=== PATIENT | female | born 1940 | race Caucasian/White ===

== ENCOUNTER 2017-12-27 12:18 | Inpatient (IN) | payer MEDICARE ==
--- NOTE | 2017-12-27 13:16 | RAD ---
LEFT FOOT 3 VIEWS: Date: 12/27/17 PROVIDED CLINICAL HISTORY: Left foot infection. FINDINGS: Soft tissue gas is seen medial to the great toe MTP joint. Additional change from prior examination i s not apparent. IMPRESSION: As above. POS: [facility]
[2017-12-27 13:52] LABS: Hemoglobin 6.4 g/dL (12.0-16.0); Mean Corpuscular HGB CONC 28.3 g/dL (32.0-36.0); Mean Corpuscular Hemoglobin 18.3 pg (27.0-31.0); Mean Corpuscular Volume 64.8 fL (78.0-98.0); Platelet Count 483 thou/uL (130-400); RBC Distribution Width 18.5 % (11.5-14.5)
[2017-12-27 14:08] LABS: ALT (SGPT) 10 U/L (8-55); AST (SGOT) 19 U/L (5-34); Albumin 4.3 g/dL (3.4-4.8); Alkaline Phosphatase 124 U/L (40-150); Anion Gap 14 mmol/L (10-20); BUN (Urea Nitrogen) 9 mg/dL (9.8-20.1); Bilirubin, Total 0.2 mg/dL (0.2-1.2); Calc. Creatinine Clearance 0 mL/min (70-130); Calcium 10.4 mg/dL (7.8-10.44); Carbon Dioxide 23 mmol/L (23-31); Chloride 103 mmol/L (98-107); Estimated GFR-MDRD 52; Globulin 3.6 g/dL (2.4-3.5); Glucose 97 mg/dL (83-110); Potassium 3.7 mmol/L (3.5-5.1); Protein, Total 7.9 g/dL (6.0-8.3); Sodium 136 mmol/L (136-145)
[2017-12-27 14:14] LABS: #Eosinphils 0.1 thou/uL (0.0-0.7); #Lymphocytes 1.8 thou/uL (1.20-3.40); #Monocytes 0.7 thou/uL (0.11-0.59); #Neutrophils 8.4 thou/uL (1.40-6.50); %Basophils 0.3 % (0.0-1.0); %Eosinophils 0.8 % (0.0-10.0); %Lymphocytes 15.9 % (21.0-51.0); %Monocytes 6.8 % (0.0-10.0); %Neutrophils 76.2 % (42.0-75.0); Anisocytosis SLIGHT = 6-15 cells (100X) (0-5/hpf); Elliptocytes SLIGHT = 2-5 cells (100X) (0-1/hpf); Hypochromia SLIGHT = 6-15 cells (100X) (0-5/hpf); MDiff Complete? YES; Microcytosis SLIGHT = 6-15 cells (100X) (0-5/hpf); PLT Morphology Comment Appears Increased; Poikilocytosis SLIGHT = 6-15 cells (100X) (0-5/hpf); Polychromasia SLIGHT = 2-3 cells (100X) (0-2/hpf)
[2017-12-27 15:14] LABS: Reticulocyte Count 1.6 % (0.5-1.5)
--- NOTE | 2017-12-27 16:17 | RAD ---
CHEST ONE VIEW: 12/27/17 HISTORY: Dyspnea. FINDINGS: No comparison. The cardiac silhouette is magnified by projection. Pulmonary vasculature upper limits of normal. Mediastinum is midline with postoperative changes, aortic calcification, and a hiatal madhuri ia. Marked elevation of the right hemidiaphragm. No evidence of pneumothorax. IMPRESSION: Marked right hemidiaphragm elevation. Age indeterminate. Atherosclerosis. POS: [facility]
[2017-12-27] MEDS ORDERED: Iron Sucrose Complex 200 MG in Sodium Chloride 0.9% 250 ML 250 ML IVPB SCH (16:30)
[2017-12-27] MEDS ORDERED: Iron, Sodium Ferric Gluconate 250 MG in Sodium Chloride 0.9% 100 ML IVPB SCH ×2 (16:45→18:00)
[2017-12-27] MEDS ORDERED: Heparin 1,000 UNITS/ML VIAL ONE (17:07)
[2017-12-27 17:13] VITALS: BMI 23.6
[2017-12-27] MEDS: Ferrous Sulfate 325 MG TAB PO SCH (17:24)
[2017-12-27] MEDS: Nicotine 14 MG PATCH TD SCH (19:49)
[2017-12-27] MEDS: Acetaminophen 325 MG TAB PO PRN (19:55)
--- NOTE | 2017-12-27 20:19 | HP ---
CHIEF COMPLAINT: Worsening left foot pain. HISTORY OF PRESENT ILLNESS: Patient is a very pleasant 77-year-old female with a history of neuropat hy and a history of Charcot's foot who presented to the hospital with complaints of worsening left fo ot pain. Patient initially was seen earlier this week by her primary and for her wellness check ever ything was okay; however, patient stated that she bought new tennis shoes, started having some pain t o medial aspect of her left foot. The patient then went to see her PCP who referred her to Infectiou s Disease who put her on 2 oral antibiotics. Wound culture indicated Pseudomonas. The patient state d that she took 1 week of the antibiotics and was sikhism about it. However, she noticed that her pain worsened, so she called, her pain worsened. The patient stated that actually she saw the Infect ious Disease doctor yesterday and was asked to come into the hospital after some blood work concernin g for anemia and possible worsening infection to her bone. However, the patient came in today for fu rther evaluation. Patient denies any fevers or chills. She just states that she does have worsening pain on her left foot area. REVIEW OF SYSTEMS: All negative except for the ones mentioned above in the HPI. PAST MEDICAL HISTORY: She has a history of anemia and neuropathy. PAST SURGICAL HISTORY: She has a history of tonsillectomy, right BKA, hysterectomy. She also has a history of CABG; however, she states that she does not have coronary artery disease. Patient stated that she had a fall and had fractured her right ankle; however, continue to work on it which caused h er to have multiple surgeries and eventually led to amputation of the right below the knee. SOCIAL HISTORY: She drinks once a year. She does smoke 3/4 of pack a day. Denies any other recreat ional drug use. She is a FULL CODE per the patient. ALLERGIES: She has no known drug allergies. MEDICATIONS: She only takes gabapentin 1200 mg 3 times a day. She takes aspirin 81 mg daily. She t akes the two antibiotics that were prescribed to her, but she cannot recall. PHYSICAL EXAMINATION: VITAL SIGNS: As of the following; temperature of 98.6, 16, pulse of 104, 149/74. GENERAL: She is awake, alert, oriented x3, does not appear in distress. CARDIOVASCULAR: S1, S2 present. Mild tachycardia. No murmurs or rubs noted. LUNGS: Clear to auscultation. No rhonchi or wheezes noted. ABDOMEN: Soft, nontender. Bowel sounds are present x2. MUSCULOSKELETAL: Lower extremities, she does have a below the knee amputation of her right which she does have a sleeve on. Her left foot, she does have a small opening which is currently covered. Sh enmanuel does have pedal edema to her left foot area and are deformed joint. LABORATORY DATA AND IMAGING DATA: As of the following: WBC of 11.0, hemoglobin of 6.4, hematocrit o f 22.7, MCV of 64.8. Her reticular count was 1.6. Chemistry: Sodium 136, potassium 3.7, BUN of 9, creatinine 1.03. Her LFTs are normal. She did have a left foot x-ray which indicated some concernin g for some soft tissue gas seen in the medial and to the greater toe MTP joint. ASSESSMENT AND PLAN: The patient is a very pleasant 77-year-old female who presents to the hospital with left foot pain. 1. Left foot cellulitis, most likely osteomyelitis with the comorbidities being neuropathy and also possible coronary artery disease or CAD, I am not sure. We will start patient on vancomycin. We ruperto l also give the patient of Levaquin since her culture recently indicated Pseudomonas, which was panse nsitive. We will consult Infectious Disease, also may be surgical consult also will be required. Fercho bundy will also get a lower extremity arterial Doppler to check for vascular flow. 2. Iron deficiency anemia. Patient's iron is 14. We will start patient on IV iron and oral iron si multaneously. She is receiving 1 unit of PRBC now. 3. Shortness of breath. The patient states she normally uses a wheelchair, but however, she states that whenever sometimes she moves around too quickly, she gets very short of breath. I am not sure i f this is anxiety related; however, she has had a bypass, but she stated that she was told that her c oronaries were clear. I am not kind of sure, there are possibilities however, very extremely rare. We will check an EKG and chest x-ray and go from there. 3. Neuropathy. The patient had an extensive workup as an outpatient for neuropathy back many years ago in [place]. She also had an EMG study also however, no etiology for her neuropathy. She is curre ntly on gabapentin. 4. Deep venous thrombosis prophylaxis. We will put the patient on sequential compression devices an d we will get physical therapy and occupational therapy to see this patient and also will put her on the nicotine patch.
[2017-12-27] MEDS ORDERED: Vancomycin HCl 1 GM in Premix Bag 1 BAG IVPB SCH (21:00)
[2017-12-28] MEDS: Acetaminophen 325 MG TAB PO PRN ×3 (01:52→23:13)
[2017-12-28 06:07] LABS: #Eosinphils 0.2 thou/uL (0.0-0.7); #Monocytes 0.8 thou/uL (0.11-0.59); #Neutrophils 4.6 thou/uL (1.40-6.50); %Basophils 0.4 % (0.0-1.0); %Eosinophils 2.5 % (0.0-10.0); %Lymphocytes 26.5 % (21.0-51.0); %Monocytes 10.4 % (0.0-10.0); %Neutrophils 60.2 % (42.0-75.0); Hemoglobin 6.7 g/dL (12.0-16.0); Mean Corpuscular HGB CONC 29.2 g/dL (32.0-36.0); Mean Corpuscular Hemoglobin 20.1 pg (27.0-31.0); Mean Corpuscular Volume 68.9 fL (78.0-98.0); Mean Platelet Volume 10.2 fL (7.4-10.4); Platelet Count 394 thou/uL (130-400); RBC Distribution Width 20.3 % (11.5-14.5); Red Blood Cell (RBC) Count 3.33 mill/uL (4.20-5.40); White Blood Cell (WBC) Count 7.6 thou/uL (4.8-10.8)
[2017-12-28 06:13] LABS: Anion Gap 12 mmol/L (10-20); BUN (Urea Nitrogen) 10 mg/dL (9.8-20.1); Calc. Creatinine Clearance 55 mL/min (70-130); Calcium 8.8 mg/dL (7.8-10.44); Carbon Dioxide 21 mmol/L (23-31); Chloride 107 mmol/L (98-107); Cholesterol 117 mg/dl (< 200 Desired); Estimated GFR-MDRD 57; Glucose 103 mg/dL (83-110); HDL Cholesterol 29 mg/dL (>60 Neg Risk); LDL Cholesterol, Calculated 70 mg/dL; Potassium 3.8 mmol/L (3.5-5.1); Sodium 136 mmol/L (136-145); Triglycerides 89 mg/dL (Less than 150)
[2017-12-28] MEDS: Cyanocobalamin (Vitamin B-12) 1,000 MCG TAB PO SCH (08:44)
[2017-12-28] MEDS: Aspirin 81 mg Enteric Coated Tablet PO SCH (08:44)
[2017-12-28] MEDS: Ferrous Sulfate 325 MG TAB PO SCH ×2 (08:44→17:58)
[2017-12-28] MEDS ORDERED: Ergocalciferol 1.25 MG(50,000 UNITS) CAP PO SCH (09:00)
--- NOTE | 2017-12-28 13:45 | ULT ---
BILATERAL LOWER EXTREMITY ARTERIAL DOPPLER STUDY: Date: 12/28/17 Arteries to both lower extremities evaluated with color Doppler, spectral analysis in compression and velocity recordings at all segments. INDICATION: Left lower extremity pain and nonhealing ulcer. Peripheral arterial disease. Patient is status post B K amputation on the right. FINDINGS: RIGHT LOWER EXTREMITY: Right common femoral artery reveals a biphasic waveform. Velocities are increased at 183 cm/second. Profunda shows a biphasic waveform with velocities at 100 cm/second. Superficial femoral artery shows biphasic waveform with velocities ranging from 57-153 cm/second. The right popliteal shows a biphasic waveform with velocities of 84 cm/second. LEFT LOWER EXTREMITY: Left common femoral artery, superficial femoral artery, and popliteal show a biphasic waveform with r elatively symmetric velocities. The left anterior tibial artery, posterior tibial artery, and dorsalis pedis show a monophasic wavefo rm with reduced velocities. IMPRESSION: 1. Evidence of moderate to severe peripheral vascular disease below the knee on the left. 2. Evidence of moderate disease above the knee bilaterally. POS: [facility]
[2017-12-28] MEDS: Vancomycin HCl 1.25 GM in Sodium Chloride 0.9% 250 ML 250 ML IVPB SCH (14:19)
--- NOTE | 2017-12-28 14:36 | PDOC.PN ---
- Subjective Encounter Start Date: 12/28/17 Encounter Start Time: 10:00 Pt seen for followup re: left foot cellulitis. Denies chest pain, shortness of breath, fevers or chills. - Objective Resuscitation Status: Resuscitation Status FULL:Full Resuscitation MAR Reviewed: Yes Vital Signs & Weight: Vital Signs (12 hours) Temp Pulse Resp BP Pulse Ox 12/28/17 11:32 97.6 F 101 H 18 146/72 H 97 12/28/17 08:00 95 12/28/17 07:42 98.3 F 87 18 121/72 95 12/28/17 04:29 98.2 F 91 16 124/68 94 L Weight Weight 151 lb 2 oz I&O: 12/27/17 12/28/17 12/29/17 06:59 06:59 06:59 Intake Total 240 Balance 240 Result Diagrams: 12/28/17 03:31 12/28/17 03:31 Additional Labs: labs reviewed by me Phys Exam - Physical Examination Constitutional: NAD HEENT: moist MMs, sclera anicteric, oral pharynx no lesions, 2+ tonsils Neck: no nodes, no JVD, supple, full ROM Respiratory: no wheezing, no rales, no rhonchi, clear to auscultation bilateral Cardiovascular: RRR, no rub Gastrointestinal: soft s/p R BKA Neurological: moves all 4 limbs Psychiatric: normal affect Deviation from normal: Oriented to person and place, not to time Deviation from normal: L foot erythema, ulcer Dx/Plan (1) Cellulitis Code(s): L03.90 - CELLULITIS, UNSPECIFIED Status: Acute Comment: continue IV vancomycin and levofloxacin (2) Vitamin D deficiency Code(s): E55.9 - VITAMIN D DEFICIENCY, UNSPECIFIED Status: Acute Comment: continue vit d (3) Microcytic anemia Code(s): D50.9 - IRON DEFICIENCY ANEMIA, UNSPECIFIED Status: Chronic Comment : continue iron replacement, pt also receiving pRBC (4) Peripheral neuropathy Code(s): G62.9 - POLYNEUROPATHY, UNSPECIFIED Status: Chronic Comment: continue gabapentin - Plan * . Review of Systems - Review of Systems Constitutional: negative: fever, chills, sweats, weakness, malaise Respiratory: negative: Cough, Shortness of Breath, SOB with Excertion, Pleuritic Pain, Wheezing Cardiovascular: negative: chest pain, palpitations, orthopnea, paroxysmal nocturnal dyspnea, edema, light headedness Gastrointestinal: negative: Nausea, Vomiting, Abdominal Pain, Diarrhea, Constipation, Melena, Hematochezia Genitourinary: negative: Dysuria, Frequency, Incontinence, Hematuria, Retention Skin: Rash, Lesions. negative: Larry, Bruising - Medications/Allergies Allergies/Adverse Reactions: Allergies Allergy/AdvReac Type Severity Reaction Status Date / Time No Known Allergies Allergy Unverified 12/27/17 15:21 Medications: Current Medications Acetaminophen (Tylenol) 650 mg PO Q4H PRN PRN Reason: Headache/Fever/Mild Pain (1-3) Last Admin: 12/28/17 14:19 Dose: 650 mg Aspirin (Ecotrin) 81 mg PO DAILY [facility] Last Admin: 12/28/17 08:44 Dose: 81 mg Cholecalciferol (Vitamin D3) 1,000 units PO DAILY [facility] Last Admin: 12/28/17 08:44 Dose: 1,000 units Cyanocobalamin (Vitamin B-12) 1,000 mcg PO DAILY [facility] Last Admin: 12/28/17 08:44 Dose: 1,000 mcg Ergocalciferol (Drisdol) 1.25 mg PO Q7DAYS [facility] Last Admin: 12/28/17 14:19 Dose: 1.25 mg Ferrous Sulfate (Feosol) 325 mg PO BID-[facility] Last Admin: 12/28/17 08:44 Dose: 325 mg Levofloxacin 500 mg/ Device 100 mls @ 100 mls/hr IVPB Q24HR [facility] Last Admin: 12/27/17 17:24 Dose: 100 mls Vancomycin HCl 1.25 gm/ Sodium (Chloride) 250 mls @ 166.667 mls/hr IVPB 1400 [facility] Last Admin: 12/28/17 14:19 Dose: 250 mls Miscellaneous Medication (Pharmacy To Dose) 1 each IVPB ONE PRN PRN Reason: Pharmacy to dose Stop: 01/06/18 15:22 Nicotine (Nicoderm Patch) 14 mg TD Q24HR [facility] Last Admin: 12/27/17 19:49 Dose: 14 mg
[2017-12-28] MEDS ORDERED: Polyethylene Glycol 3350 17 GM Packet PO PRN (20:12)
[2017-12-28] MEDS ORDERED: Senokot 8.6 MG TAB PO SCH (20:15)
[2017-12-28] MEDS: Nicotine 14 MG PATCH TD SCH (20:48)
[2017-12-29] MEDS: Aspirin 81 mg Enteric Coated Tablet PO SCH (08:42)
[2017-12-29] MEDS: Ferrous Sulfate 325 MG TAB PO SCH ×2 (08:42→17:28)
[2017-12-29] MEDS: Cyanocobalamin (Vitamin B-12) 1,000 MCG TAB PO SCH (08:42)
[2017-12-29 10:24] LABS: ANA Symphony (Qualitative) Negative (Negative); dsDNA IgG Antibody 0.6 IU/mL (<10 Negative)
--- NOTE | 2017-12-29 12:53 | CON ---
DATE OF CONSULTATION: 12/29/2017 REASON FOR CONSULTATION: Left foot inflammatory process. HISTORY OF PRESENT ILLNESS: A 77-year-old with a history of coronary artery disease with bypass surjit t surgery, peripheral vascular disease and prior right BKA and a chronic wound, left first MPJ skin w ith x-ray and MRI findings suggestive of osteomyelitis. The patient had been seen in the outpatient setting and was scheduled for continuation of conservative management, plus arterial vascular evaluat ion. Labs were submitted and there was evidence of severe anemia and therefore she was admitted. Cu rrently, she does not appear in distress. She has moderate pain in the left foot. She denies any headaches, no change in visual symptoms, sore throat, odynophagia, dysphagia, no vomit ing, no hematemesis, melena, hematochezia, no diarrhea, no genitourinary symptoms. PAST MEDICAL HISTORY: Includes coronary artery disease, bypass graft surgery, peripheral vascular di sease, prior right BKA, chronic wound, left first MPJ skin site with radiological findings suggestive of osteomyelitis. ALLERGIES: No known drug allergies. MEDICATIONS: The patient had planned treatment with vancomycin, Flagyl, Cipro, but she not had a PIC C line inserted yet. SOCIAL HISTORY: The patient is still smoking daily. FAMILY HISTORY: Noncontributory. PHYSICAL EXAMINATION: VITAL SIGNS: T-max 98.6, blood pressure 130/77, pulse 99, respirations 18, O2 saturation 98%. GENERAL: Appears chronically ill, but in no distress, pleasant. SKIN: Skin findings with a round shaped 2 cm ulcer at the medial aspect of the left first MPJ skin w ith very mild erythema surrounding it. She has a normal appearing right BKA stump. Peripheral IV ac cess and she is voiding spontaneously without a catheter. No lymphadenopathy. HEENT: Ocular movements conjugate. Oral cavity was not remarkable except for numerous missing teeth . NECK: Supple, no jugular distention or carotid bruits. LUNGS: With symmetric air entry. HEART: S1, S2, regular rate without murmurs. ABDOMEN: Soft, not distended or tender. No ascites. No bladder distention. No joint inflammatory activity outside the area of involvement. I could not feel popliteal or dorsalis pedis on the left s kamlesh. LABORATORY DATA: White cell count is 11,000, now 7.6, hemoglobin 6.4 and now 6.7, platelets 483 and 394 and creatinine 0.96, iron was 14, TIBC 395, ferritin 7.68. Lower extremity ultrasound demonstrates a moderate to severe peripheral vascular disease below the kn ee on the left, moderate disease above the knee bilaterally. Chest x-ray with elevation of the right hemidiaphragm. ASSESSMENT: 1. Chronic smoking. 2. Peripheral vascular disease with previous right [id number] amputation. 3. Chronic ulcer, left first MPJ skin site with osteomyelitis. 4. Severe anemia, possible iron deficiency. DISCUSSION: It is unlikely that the first toe is salvageable. I would at this time recommend contin uation of antimicrobial therapy with oral Cipro, Flagyl, and IV vancomycin, PICC line placement and c onsult Vascular Surgery to see if she is eligible for any revascularization procedure to decrease the risks of a BKA on the left side. If the patient is eligible for revascularization then that should be accomplished and then we could continue antimicrobial therapy, but eventually she probably will re quire first ray amputation on the left side.
[2017-12-29] MEDS: Acetaminophen 325 MG TAB PO PRN ×2 (13:36→22:46)
[2017-12-29 13:58] LABS: Vancomycin, Trough 10.6 ug/mL
[2017-12-29] MEDS: Vancomycin HCl 750 MG in Sodium Chloride 0.9% 250 ML 250 ML IVPB SCH (14:54)
--- NOTE | 2017-12-29 16:11 | ULT ---
BILATERAL CAROTID DUPLEX ULTRASOUND INCLUDING COLOR AND SPECTRAL DOPPLER IMAGIN12/29/17 HISTORY: 77-year-old female with history of right bruit. There is some fairly extensive visual plaque in the origins of both ICAs. PSV right ICA 162 cm/s. EDV 16 cm/s. ICA/CCA ratio of 1.2. PSV left ICA 147 cm/s. EDV 29 cm/s. ICA/CCA ratio of 1.6. Vertebral flow is antegrade. IMPRESSION: Moderate (50-69%) stenosis of right and left proximal ICAs. Bilateral visual plaque. POS: [facility]
[2017-12-29] MEDS ORDERED: Zolpidem Tartrate 5 MG TAB PO PRN (16:49)
--- NOTE | 2017-12-29 16:49 | PDOC.PN ---
- Subjective Encounter Start Date: 12/29/17 Encounter Start Time: 09:20 Pt seen for followup re: cellulitis. Denies chest pain, shortness of breath, fevers or chills. c/o insomnia - Objective Resuscitation Status: Resuscitation Status FULL:Full Resuscitation MAR Reviewed: Yes Vital Signs & Weight: Vital Signs (12 hours) Temp Pulse Resp BP Pulse Ox 12/29/17 16:00 98.8 F 98 16 126/78 96 12/29/17 09:00 97.7 F 100 16 150/79 H 99 12/29/17 08:00 98.1 F 99 18 134/77 98 Weight Weight 151 lb 2 oz I&O: 12/28/17 12/29/17 12/30/17 06:59 06:59 06:59 Intake Total 660 500 Balance 660 500 Result Diagrams: 12/28/17 03:31 12/28/17 03:31 Additional Labs: labs reviewed by me Phys Exam - Physical Examination Constitutional: NAD HEENT: moist MMs, sclera anicteric, oral pharynx no lesions, 2+ tonsils Neck: no nodes, no JVD, supple, full ROM Respiratory: no wheezing, no rales, no rhonchi, clear to auscultation bilateral Cardiovascular: RRR, no rub S1, s2 Gastrointestinal: soft, non-tender, no distention, positive bowel sounds s/p R BKA Psychiatric: normal affect, A&O x 3 Deviation from normal: L foot wound, cellulitis Dx/Plan (1) Cellulitis Code(s): L03.90 - CELLULITIS, UNSPECIFIED Status: Acute Comment: continue IV vancomycin, start oral ciprofloxacin and metronidazole (2) Vitamin D deficiency Code(s): E55.9 - VITAMIN D DEFICIENCY, UNSPECIFIED Status: Acute Comment: on vit d (3) Microcytic anemia Code(s): D50.9 - IRON DEFICIENCY ANEMIA, UNSPECIFIED Status: Chronic Comment : continue iron replacement (4) Peripheral neuropathy Code(s): G62.9 - POLYNEUROPATHY, UNSPECIFIED Status: Chronic Comment: on gabapentin (5) Insomnia Code(s): G47.00 - INSOMNIA, UNSPECIFIED Status: Chronic Comment: PRN Ambien and melatonin - Plan * . Review of Systems - Review of Systems Constitutional: other (insomnia). negative: fever, chills, sweats, weakness, malaise Respiratory: negative: Cough, Shortness of Breath, SOB with Excertion, Pleuritic Pain, Wheezing Cardiovascular: negative: chest pain, palpitations, orthopnea, paroxysmal nocturnal dyspnea, edema, light headedness Gastrointestinal: negative: Nausea, Vomiting, Abdominal Pain, Diarrhea, Constipation, Melena, Hematochezia Genitourinary: negative: Dysuria, Frequency, Incontinence, Hematuria, Retention Skin: Rash, Lesions - Medications/Allergies Allergies/Adverse Reactions: Allergies Allergy/AdvReac Type Severity Reaction Status Date / Time No Known Allergies Allergy Unverified 12/27/17 15:21 Medications: Current Medications Acetaminophen (Tylenol) 650 mg PO Q4H PRN PRN Reason: Headache/Fever/Mild Pain (1-3) Last Admin: 12/29/17 13:36 Dose: 650 mg Aspirin (Ecotrin) 81 mg PO DAILY [facility] Last Admin: 12/29/17 08:42 Dose: 81 mg Cholecalciferol (Vitamin D3) 1,000 units PO DAILY [facility] Last Admin: 12/29/17 08:42 Dose: 1,000 units Cyanocobalamin (Vitamin B-12) 1,000 mcg PO DAILY [facility] Last Admin: 12/29/17 08:42 Dose: 1,000 mcg Ergocalciferol (Drisdol) 1.25 mg PO Q7DAYS [facility] Last Admin: 12/28/17 14:19 Dose: 1.25 mg Ferrous Sulfate (Feosol) 325 mg PO BID-[facility] Last Admin: 12/29/17 08:42 Dose: 325 mg Levofloxacin 500 mg/ Device 100 mls @ 100 mls/hr IVPB Q24HR [facility] Last Admin: 12/28/17 17:55 Dose: 100 mls Vancomycin HCl 750 mg/ Sodium (Chloride) 250 mls @ 250 mls/hr IVPB 0300,1500 [facility] Last Admin: 12/29/17 14:54 Dose: 250 mls Melatonin (Melatonin) 3 mg PO HS PRN PRN Reason: Insomnia Miscellaneous Medication (Pharmacy To Dose) 1 each IVPB ONE PRN PRN Reason: Pharmacy to dose Stop: 01/06/18 15:22 Nicotine (Nicoderm Patch) 14 mg TD Q24HR [facility] Last Admin: 12/28/17 20:48 Dose: 14 mg Polyethylene Glycol (Miralax) 17 gm PO DAILYPRN PRN PRN Reason: .CONSTIPATION Last Admin: 12/29/17 11:28 Dose: 17 gm Zolpidem Tartrate (Ambien) 5 mg PO HSPRN PRN PRN Reason: Insomnia
--- NOTE | 2017-12-29 18:36 | CON ---
DATE OF CONSULTATION: 12/29/2017 HISTORY OF PRESENT ILLNESS: This is a 77-year-old female who moved down here about 1 year ago from [facility] to be closer to her daughter. Short time after moving here, she broke her left hip an d was seen and treated at [facility] in [place]. She then developed more recentl y an ulceration on her right foot and has been treated with outpatient antibiotics. Recent blood wor k demonstrated anemia with a hemoglobin in the 6-7 range and it was recommended that she be admitted. She had an ultrasound of her lower extremities suggesting monophasic flow in her left-sided tibial vessels and I was asked to see her in regard to peripheral arterial disease. The patient smokes 3/4 to a pack of cigarettes a day. PAST MEDICAL HISTORY: Significant for coronary bypass graft x3 about 12 years ago in the [facility] . She also has a history of neuropathy, but denies any history of diabetes mellitus. PAST SURGICAL HISTORY: Significance including a right BKA in the [facility] and she does not recall having any bypass or stenting done prior to that. She also has a history of hysterectomy, and tonsi llectomy, bilateral breast reductions, ruptured appendectomy and previously noted right BKA. SOCIAL HISTORY: She lives alone, smokes as noted. ALLERGIES: None known. MEDICATIONS: Gabapentin and aspirin at home. PHYSICAL EXAMINATION: GENERAL: She is alert, talkative lady in no distress. NECK: Right carotid bruit. CARDIAC: Regular rate and rhythm. No murmurs. LUNGS: Clear to auscultation anteriorly. ABDOMEN: Healed scars, soft and nontender. EXTREMITIES: She has palpable femoral pulses bilaterally as well as left popliteal on the left poste rior tibial pulse. Doppler examination reveals triphasic posterior tibial signal as well as monophas ic dorsalis pedis signal and triphasic peroneal signal. She has ulceration with dressing over the me dial aspect of her first metatarsal head. At this time, would have to disagree with the vascular ultrasound examination and she does have triph asic signals in her posterior tibial, which is easily palpable as well as peroneal. I suspect her an terior tibial may be occluded; however. Overall, I think the patient's circulation is more than adeq uate for healing a wound on the foot and would not recommend angiography at this time. I would sugge st carotid ultrasound at some point to evaluate her right carotid bruit.
[2017-12-29] MEDS: Vancomycin HCl 1.25 GM in Sodium Chloride 0.9% 250 ML 250 ML IVPB SCH (19:58)
[2017-12-29] MEDS: Gabapentin 300 MG CAP PO SCH (20:34)
[2017-12-29] MEDS: metroNIDAZOLE 500 MG TAB PO SCH (20:34)
[2017-12-29] MEDS: Ciprofloxacin 500 MG TAB PO SCH (20:35)
[2017-12-29] MEDS: Nicotine 14 MG PATCH TD SCH (20:35)
[2017-12-29] MEDS: Melatonin 3 MG TAB PO PRN (22:46)
[2017-12-30] MEDS: Vancomycin HCl 750 MG in Sodium Chloride 0.9% 250 ML 250 ML IVPB SCH ×2 (04:01→14:40)
[2017-12-30 04:56] LABS: Anion Gap 14 mmol/L (10-20); BUN (Urea Nitrogen) 7 mg/dL (9.8-20.1); Calc. Creatinine Clearance 67 mL/min (70-130); Calcium 9.5 mg/dL (7.8-10.44); Carbon Dioxide 21 mmol/L (23-31); Chloride 107 mmol/L (98-107); Estimated GFR-MDRD 71; Glucose 94 mg/dL (83-110); Potassium 3.7 mmol/L (3.5-5.1); Sodium 138 mmol/L (136-145)
[2017-12-30 05:19] LABS: #Eosinphils 0.2 thou/uL (0.0-0.7); #Lymphocytes 1.6 thou/uL (1.20-3.40); #Monocytes 0.9 thou/uL (0.11-0.59); #Neutrophils 4.8 thou/uL (1.40-6.50); %Basophils 0.1 % (0.0-1.0); %Eosinophils 2.2 % (0.0-10.0); %Lymphocytes 21.1 % (21.0-51.0); %Monocytes 12.1 % (0.0-10.0); %Neutrophils 64.5 % (42.0-75.0); Anisocytosis SLIGHT = 6-15 cells (100X) (0-5/hpf); Hemoglobin 9.2 g/dL (12.0-16.0); Hypochromia SLIGHT = 6-15 cells (100X) (0-5/hpf); MDiff Complete? YES; Mean Corpuscular HGB CONC 30.7 g/dL (32.0-36.0); Mean Corpuscular Hemoglobin 21.9 pg (27.0-31.0); Mean Corpuscular Volume 71.4 fL (78.0-98.0); Mean Platelet Volume 10.2 fL (7.4-10.4); Microcytosis SLIGHT = 6-15 cells (100X) (0-5/hpf); Platelet Count 428 thou/uL (130-400); RBC Distribution Width 22.2 % (11.5-14.5); Red Blood Cell (RBC) Count 4.19 mill/uL (4.20-5.40); White Blood Cell (WBC) Count 7.4 thou/uL (4.8-10.8)
[2017-12-30] MEDS: Ciprofloxacin 500 MG TAB PO SCH ×2 (05:53→21:04)
[2017-12-30] MEDS: Ferrous Sulfate 325 MG TAB PO SCH ×2 (08:46→17:14)
[2017-12-30] MEDS: Aspirin 81 mg Enteric Coated Tablet PO SCH (08:46)
[2017-12-30] MEDS: metroNIDAZOLE 500 MG TAB PO SCH ×3 (08:46→21:04)
[2017-12-30] MEDS: Cyanocobalamin (Vitamin B-12) 1,000 MCG TAB PO SCH (08:46)
[2017-12-30] MEDS: Gabapentin 300 MG CAP PO SCH ×3 (08:46→21:03)
[2017-12-30] MEDS: Acetaminophen 325 MG TAB PO PRN ×2 (08:48→14:40)
[2017-12-30] MEDS ORDERED: Benzonatate 100 MG CAP PO SCH (17:00)
--- NOTE | 2017-12-30 17:37 | PDOC.PN ---
- Subjective Encounter Start Date: 12/30/17 Encounter Start Time: 08:40 Pt seen for followup re: cellulitis. Reports cough, yellow sputum. No shortness of breath. - Objective Resuscitation Status: Resuscitation Status FULL:Full Resuscitation MAR Reviewed: Yes Vital Signs & Weight: Vital Signs (12 hours) Temp Pulse Resp BP Pulse Ox 12/30/17 08:00 98.3 F 102 H 16 113/72 96 Weight Admit Weight 151 lb 2 oz Weight 151 lb 2 oz I&O: 12/29/17 12/30/17 12/31/17 06:59 06:59 06:59 Intake Total 660 1890 360 Balance 660 1890 360 Result Diagrams: 12/30/17 03:40 12/30/17 03:40 Additional Labs: Labs reviewed by me Phys Exam - Physical Examination Constitutional: NAD HEENT: moist MMs Neck: supple Respiratory: clear to auscultation bilateral Cardiovascular: RRR Gastrointestinal: soft s/p R BKA Neurological: moves all 4 limbs Psychiatric: normal affect Deviation from normal: left foot cellulitis, wound Dx/Plan (1) Cellulitis Code(s): L03.90 - CELLULITIS, UNSPECIFIED Status: Acute Comment: continue IV vancomycin, oral ciprofloxacin and metronidazole (2) Bronchitis Code(s): J40 - BRONCHITIS, NOT SPECIFIED ACUTE OR CHRONIC Status: Acute Comment: continue ciprofloxacin, check chest x-ray (3) Vitamin D deficiency Code(s): E55.9 - VITAMIN D DEFICIENCY, UNSPECIFIED Status: Acute Comment: continue vit d (4) Microcytic anemia Code(s): D50.9 - IRON DEFICIENCY ANEMIA, UNSPECIFIED Status: Chronic Comment : on iron replacement (5) Peripheral neuropathy Code(s): G62.9 - POLYNEUROPATHY, UNSPECIFIED Status: Chronic Comment: on gabapentin (6) Insomnia Code(s): G47.00 - INSOMNIA, UNSPECIFIED Status: Chronic Comment: PRN Ambien and melatonin - Plan * . Review of Systems - Review of Systems Respiratory: Cough, Sputum. negative: Dry, Shortness of Breath, Hemoptysis, SOB with Excertion, Pleuritic Pain, Wheezing Cardiovascular: negative: chest pain, palpitations, orthopnea, paroxysmal nocturnal dyspnea, edema, light headedness Skin: Rash, Lesions - Medications/Allergies Allergies/Adverse Reactions: Allergies Allergy/AdvReac Type Severity Reaction Status Date / Time No Known Allergies Allergy Unverified 12/27/17 15:21 Medications: Current Medications Acetaminophen (Tylenol) 650 mg PO Q4H PRN PRN Reason: Headache/Fever/Mild Pain (1-3) Last Admin: 12/30/17 14:40 Dose: 650 mg Aspirin (Ecotrin) 81 mg PO DAILY [facility] Last Admin: 12/30/17 08:46 Dose: 81 mg Benzonatate (Tessalon) 100 mg PO TID [facility] Benzonatate (Tessalon) 100 mg PO NOW [facility] Stop: 12/30/17 19:00 Last Admin: 12/30/17 17:14 Dose: 100 mg Cholecalciferol (Vitamin D3) 1,000 units PO DAILY [facility] Last Admin: 12/30/17 08:46 Dose: 1,000 units Ciprofloxacin (Cipro) 500 mg PO BID@0600,2000 [facility] Last Admin: 12/30/17 05:53 Dose: 500 mg Cyanocobalamin (Vitamin B-12) 1,000 mcg PO DAILY [facility] Last Admin: 12/30/17 08:46 Dose: 1,000 mcg Ergocalciferol (Drisdol) 1.25 mg PO Q7DAYS [facility] Last Admin: 12/28/17 14:19 Dose: 1.25 mg Ferrous Sulfate (Feosol) 325 mg PO BID-[facility] Last Admin: 12/30/17 17:14 Dose: 325 mg Gabapentin (Neurontin) 600 mg PO TID [facility] Last Admin: 12/30/17 14:40 Dose: 600 mg Vancomycin HCl 750 mg/ Sodium (Chloride) 250 mls @ 250 mls/hr IVPB 0300,1500 [facility] Last Admin: 12/30/17 14:40 Dose: 250 mls Melatonin (Melatonin) 3 mg PO HS PRN PRN Reason: Insomnia Last Admin: 12/29/17 22:46 Dose: 3 mg Metronidazole (Flagyl) 500 mg PO TID [facility] Last Admin: 12/30/17 14:40 Dose: 500 mg Miscellaneous Medication (Pharmacy To Dose) 1 each IVPB ONE PRN PRN Reason: Pharmacy to dose Stop: 01/06/18 15:22 Nicotine (Nicoderm Patch) 14 mg TD Q24HR [facility] Last Admin: 12/29/17 20:35 Dose: 14 mg Polyethylene Glycol (Miralax) 17 gm PO DAILYPRN PRN PRN Reason: .CONSTIPATION Last Admin: 12/29/17 11:28 Dose: 17 gm Zolpidem Tartrate (Ambien) 5 mg PO HSPRN PRN PRN Reason: Insomnia
[2017-12-30] MEDS: Acetaminophen/Codeine 30-300mg Tablet PO PRN (18:14)
--- NOTE | 2017-12-30 19:28 | RAD ---
SINGLE VIEW OF THE CHEST: 12/30/17 COMPARISON: 12/27/17 HISTORY: Shortness of breath. FINDINGS: Single view of the chest shows a normal sized cardiomediastinal silhouette. The patient is status pos t sternotomy. There is stable elevation of the right hemidiaphragm. There is no evidence of consolida tion, mass, or pleural effusion. IMPRESSION: No evidence of acute cardiopulmonary disease. POS: [facility]
[2017-12-30] MEDS: Benzonatate 100 MG CAP PO SCH (21:03)
[2017-12-30] MEDS: Nicotine 14 MG PATCH TD SCH (21:04)
[2017-12-30] MEDS: Melatonin 3 MG TAB PO PRN (23:34)
[2017-12-31 02:38] LABS: Vancomycin, Trough 18.9 ug/mL
[2017-12-31] MEDS: Vancomycin HCl 750 MG in Sodium Chloride 0.9% 250 ML 250 ML IVPB SCH ×2 (03:00→15:11)
[2017-12-31] MEDS: Ciprofloxacin 500 MG TAB PO SCH ×2 (05:40→21:26)
[2017-12-31] MEDS: Gabapentin 300 MG CAP PO SCH ×3 (09:55→21:25)
[2017-12-31] MEDS: Benzonatate 100 MG CAP PO SCH ×3 (09:55→21:24)
[2017-12-31] MEDS: Ferrous Sulfate 325 MG TAB PO SCH ×2 (09:55→17:21)
[2017-12-31] MEDS: Cyanocobalamin (Vitamin B-12) 1,000 MCG TAB PO SCH (09:55)
[2017-12-31] MEDS: metroNIDAZOLE 500 MG TAB PO SCH ×3 (09:56→21:26)
[2017-12-31] MEDS: Aspirin 81 mg Enteric Coated Tablet PO SCH (10:01)
--- NOTE | 2017-12-31 16:05 | PDOC.PN ---
- Subjective Encounter Start Date: 12/31/17 Encounter Start Time: 16:03 Subjective: feels much better.c/o loos estools.no abd pain -: no CP/SOB. no fever/chills - Objective Resuscitation Status: Resuscitation Status FULL:Full Resuscitation MAR Reviewed: Yes Vital Signs & Weight: Vital Signs (12 hours) Temp Pulse Resp BP Pulse Ox 12/31/17 12:00 99.0 F 102 H 18 131/78 98 12/31/17 08:00 98.8 F 100 18 118/71 98 Weight Admit Weight 151 lb 2 oz Weight 151 lb 2 oz I&O: 12/30/17 12/31/17 01/01/18 06:59 06:59 06:59 Intake Total 1890 600 240 Balance 1890 600 240 Result Diagrams: 12/30/17 03:40 12/30/17 03:40 Additional Labs: Microbiology 12/22/17 12:00 Foot - Left Bacterial Culture - Final 12/22/17 12:00 Foot - Left Anaerobic Culture - Final Pseudomonas aeruginosa No growth. 12/27/17 13:30 Venous blood - Right Arm Blood Culture - Preliminary NO GROWTH AT 48 HOURS 12/27/17 13:24 Venous blood - Left Hand Blood Culture - Preliminary NO GROWTH AT 48 HOURS Phys Exam - Physical Examination Constitutional: NAD HEENT: PERRLA, moist MMs, sclera anicteric, oral pharynx no lesions Neck: no nodes, no JVD, supple, full ROM Respiratory: no wheezing, no rales, no rhonchi, clear to auscultation bilateral Cardiovascular: RRR, no significant murmur, no rub Gastrointestinal: soft, non-tender, no distention, positive bowel sounds Musculoskeletal: no edema, pulses present R BKA Neurological: non-focal, normal sensation, moves all 4 limbs Psychiatric: normal affect, A&O x 3 Skin: no rash Dx/Plan (1) Toe osteomyelitis, left Code(s): M86.9 - OSTEOMYELITIS, UNSPECIFIED Status: Acute (2) Cellulitis Code(s): L03.90 - CELLULITIS, UNSPECIFIED Status: Acute Comment: continue IV vancomycin, oral ciprofloxacin and metronidazole (3) Vitamin D deficiency Code(s): E55.9 - VITAMIN D DEFICIENCY, UNSPECIFIED Status: Chronic Comment: continue vit d (4) Microcytic anemia Code(s): D50.9 - IRON DEFICIENCY ANEMIA, UNSPECIFIED Status: Chronic Comment : on iron replacement.S/P PRBC transfusion 12/28.H/H stable (5) Peripheral neuropathy Code(s): G62.9 - POLYNEUROPATHY, UNSPECIFIED Status: Chronic Comment: on gabapentin - Plan continue antibiotics, PT/OT, incentive spirometry, out of bed/ambulate, DVT proph w/SCDs add Florastor. add mucinex,IS -: discussed w ID Dr [email or web address] need termite technician IV vancomycin -: will order PICC.OP IV ABx set up discussed w CM -: HD stable. -: monitor H/h.not on any OAC * . Review of Systems - Review of Systems Constitutional: weakness, malaise. negative: fever, chills, sweats, other Cardiovascular: negative: chest pain, palpitations, orthopnea, paroxysmal nocturnal dyspnea, edema, light headedness, other Gastrointestinal: negative: Nausea, Vomiting, Abdominal Pain, Diarrhea, Constipation, Melena, Hematochezia, Other Genitourinary: negative: Dysuria, Frequency, Incontinence, Hematuria, Retention , Other Musculoskeletal: negative: Neck Pain, Shoulder Pain, Arm Pain, Back Pain, Hand Pain, Leg Pain, Foot Pain, Other Skin: negative: Rash, Lesions, Larry, Bruising, Other Neurological: negative: Weakness, Numbness, Incoordination, Change in Speech, Confusion, Seizures, Other - Medications/Allergies Allergies/Adverse Reactions: Allergies Allergy/AdvReac Type Severity Reaction Status Date / Time No Known Allergies Allergy Unverified 12/27/17 15:21 Medications: Current Medications Acetaminophen (Tylenol) 650 mg PO Q4H PRN PRN Reason: Headache/Fever/Mild Pain (1-3) Last Admin: 12/30/17 14:40 Dose: 650 mg Acetaminophen/Codeine Phosphate (Tylenol #3) 1 tab PO Q6H PRN PRN Reason: Pain 4-6 Last Admin: 12/30/17 18:14 Dose: 1 tab Aspirin (Ecotrin) 81 mg PO DAILY [facility] Last Admin: 12/31/17 10:01 Dose: 81 mg Benzonatate (Tessalon) 100 mg PO TID [facility] Last Admin: 12/31/17 15:12 Dose: 100 mg Cholecalciferol (Vitamin D3) 1,000 units PO DAILY [facility] Last Admin: 12/31/17 09:55 Dose: 1,000 units Ciprofloxacin (Cipro) 500 mg PO BID@0600,2000 [facility] Last Admin: 12/31/17 05:40 Dose: 500 mg Cyanocobalamin (Vitamin B-12) 1,000 mcg PO DAILY [facility] Last Admin: 12/31/17 09:55 Dose: 1,000 mcg Ergocalciferol (Drisdol) 1.25 mg PO Q7DAYS [facility] Last Admin: 12/28/17 14:19 Dose: 1.25 mg Ferrous Sulfate (Feosol) 325 mg PO BID-[facility] Last Admin: 12/31/17 09:55 Dose: 325 mg Gabapentin (Neurontin) 600 mg PO TID [facility] Last Admin: 12/31/17 15:12 Dose: 600 mg Vancomycin HCl 750 mg/ Sodium (Chloride) 250 mls @ 250 mls/hr IVPB 0300,1500 [facility] Last Admin: 12/31/17 15:11 Dose: 250 mls Melatonin (Melatonin) 3 mg PO HS PRN PRN Reason: Insomnia Last Admin: 12/30/17 23:34 Dose: 3 mg Metronidazole (Flagyl) 500 mg PO TID [facility] Last Admin: 12/31/17 15:12 Dose: 500 mg Miscellaneous Medication (Pharmacy To Dose) 1 each IVPB ONE PRN PRN Reason: Pharmacy to dose Stop: 01/06/18 15:22 Nicotine (Nicoderm Patch) 14 mg TD Q24HR [facility] Last Admin: 12/30/17 21:04 Dose: 14 mg Polyethylene Glycol (Miralax) 17 gm PO DAILYPRN PRN PRN Reason: .CONSTIPATION Last Admin: 12/29/17 11:28 Dose: 17 gm Zolpidem Tartrate (Ambien) 5 mg PO HSPRN PRN PRN Reason: Insomnia
[2017-12-31] MEDS ORDERED: Saccharomyces boulardii 250 MG CAP PO SCH (16:15)
--- NOTE | 2017-12-31 20:30 | PRG ---
DATE OF SERVICE: 12/31/2017 SUBJECTIVE: No major issues. No chest pain, no abdominal pain. PHYSICAL EXAMINATION: VITAL SIGNS: T-max 99, blood pressure 140/70, pulse 102, respirations 18. LUNGS: Clear. HEART: S1, S2, regular rate. ABDOMEN: Soft. EXTREMITIES: Left foot wound unchanged. LABORATORY DATA: White cell count 7.4, hemoglobin 9.2, platelets 428. Sodium 136, creatinine 0.79 and blood cultures no growth at 48 hours. Chest x-ray no evidence of acute cardiopulmonary disease. Dr. Mayers's evaluation has been completed and the patient is felt to have adequate supply to heal that lesion. ASSESSMENT: Chronic smoking; peripheral vascular disease; chronic ulcer, left first MPJ skin site with evidence of osteomyelitis. DISCUSSION: At this time, we will continue with IV antimicrobial therapy. PICC line placement. Let see if we can arrange for Invanz and vancomycin in the home setting then Flagyl, Cipro and IV vancomycin. MTDD
[2017-12-31] MEDS: Acetaminophen/Codeine 30-300mg Tablet PO PRN (21:23)
[2017-12-31] MEDS: guaiFENesin ER 600 MG TAB PO SCH (21:24)
[2017-12-31] MEDS: Nicotine 14 MG PATCH TD SCH (21:26)
[2018-01-01] MEDS: Vancomycin HCl 750 MG in Sodium Chloride 0.9% 250 ML 250 ML IVPB SCH ×2 (04:00→16:18)
[2018-01-01] MEDS: Ciprofloxacin 500 MG TAB PO SCH ×2 (05:27→21:08)
[2018-01-01] MEDS: Gabapentin 300 MG CAP PO SCH ×3 (08:23→21:02)
[2018-01-01] MEDS: Saccharomyces boulardii 250 MG CAP PO SCH (08:23)
[2018-01-01] MEDS: guaiFENesin ER 600 MG TAB PO SCH ×2 (08:23→21:02)
[2018-01-01] MEDS: metroNIDAZOLE 500 MG TAB PO SCH ×3 (08:23→21:02)
[2018-01-01] MEDS: Benzonatate 100 MG CAP PO SCH ×3 (08:23→21:02)
[2018-01-01] MEDS: Ferrous Sulfate 325 MG TAB PO SCH ×2 (08:23→16:19)
[2018-01-01] MEDS: Cyanocobalamin (Vitamin B-12) 1,000 MCG TAB PO SCH (08:23)
[2018-01-01] MEDS: Aspirin 81 mg Enteric Coated Tablet PO SCH (08:23)
[2018-01-01] MEDS ORDERED: Loratadine 10 MG TAB PO PRN (09:31)
--- NOTE | 2018-01-01 13:39 | SPC ---
ULTRASOUND AND FLUOROSCOPIC GUIDED LEFT UPPER EXTREMITY PICC LINE PLACEMENT: INDICATIONS: Need for long-term IV antibiotics. TECHNIQUE: Informed consent was obtained. The left upper extremity was prepped and draped in the usual sterile fashion. A tourniquet was placed. Pre-procedure ultrasound demonstrated a patent left basilic vein. The soft tissues overlying the left basilic vein were anesthetized utilizing buffered 1% Lidocaine. Under ultrasound guidance, a micropuncture access kit was utilized to gain access to the left basil ic vein. A guidewire was advanced to the level of the IVC, to verify venous site access. A 5 Dominican catheter sheath was then placed. A dual-lumen PICC line, trimmed to 46 cm, was guided over the wire and through the sheath. The sheath and wire were removed. Total fluoroscopic time was 0.4 minutes. Total exposure was 2970 mGy per cm2. IMPRESSION: Successful ultrasound and fluoroscopic guided left upper extremity peripherally inserted central cath eter line placement. POS: [facility]
--- NOTE | 2018-01-01 14:11 | PDOC.PN ---
- Subjective Encounter Start Date: 01/01/18 Encounter Start Time: 14:09 Subjective: feels well. no new complaints.no ON events - Objective Resuscitation Status: Resuscitation Status FULL:Full Resuscitation MAR Reviewed: Yes Vital Signs & Weight: Vital Signs (12 hours) Temp Pulse Resp BP Pulse Ox 01/01/18 08:00 95 01/01/18 07:43 98.5 F 104 H 20 119/62 95 01/01/18 04:00 98.5 F 104 H 18 108/51 L 95 Weight Admit Weight 151 lb 2 oz Weight 151 lb 2 oz I&O: 12/31/17 01/01/18 01/02/18 06:59 06:59 06:59 Intake Total 600 660 240 Balance 600 660 240 Result Diagrams: 01/01/18 04:01 12/30/17 03:40 Additional Labs: Microbiology 12/27/17 13:30 Venous blood - Right Arm Blood Culture - Preliminary NO GROWTH AT 48 HOURS 12/27/17 13:24 Venous blood - Left Hand Blood Culture - Preliminary NO GROWTH AT 48 HOURS Phys Exam - Physical Examination Constitutional: NAD HEENT: PERRLA, moist MMs, sclera anicteric, oral pharynx no lesions Neck: no nodes, no JVD, supple, full ROM Respiratory: no wheezing, no rales, no rhonchi, clear to auscultation bilateral Cardiovascular: RRR, no significant murmur, no rub Gastrointestinal: soft, non-tender, no distention, positive bowel sounds Musculoskeletal: no edema, pulses present R BKA Neurological: non-focal, normal sensation, moves all 4 limbs Psychiatric: normal affect, A&O x 3 Skin: no rash Dx/Plan (1) Toe osteomyelitis, left Code(s): M86.9 - OSTEOMYELITIS, UNSPECIFIED Status: Acute (2) Cellulitis Code(s): L03.90 - CELLULITIS, UNSPECIFIED Status: Acute Comment: continue IV vancomycin, oral ciprofloxacin and metronidazole (3) Vitamin D deficiency Code(s): E55.9 - VITAMIN D DEFICIENCY, UNSPECIFIED Status: Chronic Comment: continue vit d (4) Microcytic anemia Code(s): D50.9 - IRON DEFICIENCY ANEMIA, UNSPECIFIED Status: Chronic Comment : on iron replacement.S/P PRBC transfusion 12/28.H/H stable (5) Peripheral neuropathy Code(s): G62.9 - POLYNEUROPATHY, UNSPECIFIED Status: Chronic Comment: on gabapentin - Plan continue antibiotics, out of bed/ambulate, DVT proph w/SCDs PICC today>OP IV Abx to be set up w wound care -: Cont broad spectrum IV Abx here -: HD stable -: DC home when home infusion arranged -: appreciate ID input. * supportive care Review of Systems - Review of Systems Constitutional: negative: fever, chills, sweats, weakness, malaise, other Respiratory: negative: Cough, Dry, Shortness of Breath, Hemoptysis, SOB with Excertion, Pleuritic Pain, Sputum, Wheezing Cardiovascular: negative: chest pain, palpitations, orthopnea, paroxysmal nocturnal dyspnea, edema, light headedness, other Gastrointestinal: negative: Nausea, Vomiting, Abdominal Pain, Diarrhea, Constipation, Melena, Hematochezia, Other Genitourinary: negative: Dysuria, Frequency, Incontinence, Hematuria, Retention , Other Musculoskeletal: negative: Neck Pain, Shoulder Pain, Arm Pain, Back Pain, Hand Pain, Leg Pain, Foot Pain, Other Skin: negative: Rash, Lesions, Larry, Bruising, Other Neurological: negative: Weakness, Numbness, Incoordination, Change in Speech, Confusion, Seizures, Other - Medications/Allergies Allergies/Adverse Reactions: Allergies Allergy/AdvReac Type Severity Reaction Status Date / Time No Known Allergies Allergy Unverified 12/27/17 15:21 Medications: Current Medications Acetaminophen (Tylenol) 650 mg PO Q4H PRN PRN Reason: Headache/Fever/Mild Pain (1-3) Last Admin: 12/30/17 14:40 Dose: 650 mg Acetaminophen/Codeine Phosphate (Tylenol #3) 1 tab PO Q6H PRN PRN Reason: Pain 4-6 Last Admin: 12/31/17 21:23 Dose: 1 tab Aspirin (Ecotrin) 81 mg PO DAILY [facility] Last Admin: 01/01/18 08:23 Dose: 81 mg Benzonatate (Tessalon) 100 mg PO TID [facility] Last Admin: 01/01/18 08:23 Dose: 100 mg Cholecalciferol (Vitamin D3) 1,000 units PO DAILY [facility] Last Admin: 01/01/18 08:23 Dose: 1,000 units Ciprofloxacin (Cipro) 500 mg PO BID@0600,2000 [facility] Last Admin: 01/01/18 05:27 Dose: 500 mg Cyanocobalamin (Vitamin B-12) 1,000 mcg PO DAILY [facility] Last Admin: 01/01/18 08:23 Dose: 1,000 mcg Ergocalciferol (Drisdol) 1.25 mg PO Q7DAYS [facility] Last Admin: 12/28/17 14:19 Dose: 1.25 mg Ferrous Sulfate (Feosol) 325 mg PO BID-[facility] Last Admin: 01/01/18 08:23 Dose: 325 mg Gabapentin (Neurontin) 600 mg PO TID [facility] Last Admin: 01/01/18 08:23 Dose: 600 mg Guaifenesin (Mucinex) 1,200 mg PO Q12HR [facility] Last Admin: 01/01/18 08:23 Dose: 1,200 mg Vancomycin HCl 750 mg/ Sodium (Chloride) 250 mls @ 250 mls/hr IVPB 0300,1500 [facility] Last Admin: 01/01/18 04:00 Dose: 250 mls Loratadine (Claritin) 10 mg PO DAILYPRN PRN PRN Reason: Allergies Melatonin (Melatonin) 3 mg PO HS PRN PRN Reason: Insomnia Last Admin: 12/30/17 23:34 Dose: 3 mg Metronidazole (Flagyl) 500 mg PO TID [facility] Last Admin: 01/01/18 08:23 Dose: 500 mg Miscellaneous Medication (Pharmacy To Dose) 1 each IVPB ONE PRN PRN Reason: Pharmacy to dose Stop: 01/06/18 15:22 Nicotine (Nicoderm Patch) 14 mg TD Q24HR [facility] Last Admin: 12/31/17 21:26 Dose: 14 mg Polyethylene Glycol (Miralax) 17 gm PO DAILYPRN PRN PRN Reason: .CONSTIPATION Last Admin: 12/29/17 11:28 Dose: 17 gm Saccharomyces Boulardii (Florastor) 250 mg PO DAILY [facility] Last Admin: 01/01/18 08:23 Dose: 250 mg Zolpidem Tartrate (Ambien) 5 mg PO HSPRN PRN PRN Reason: Insomnia
[2018-01-01 14:25] LABS: Vancomycin, Trough 20.8 ug/mL
[2018-01-01] MEDS ORDERED: GoLYTELY 4,000 ml Bottle PO SCH (16:45)
--- NOTE | 2018-01-01 20:55 | CON ---
DATE OF CONSULTATION: 01/01/2018 REQUESTING PHYSICIAN: Dr. Manning. REASON FOR CONSULTATION: Dysphagia. HISTORY OF PRESENT ILLNESS: Elizabeth Chowdhury is a 77-year-old woman with a history of significant peripher al vascular disease, still abusing tobacco. She has been hospitalized for the past 5 days now with a significant left foot pain, diagnosed with osteomyelitis, just having received a PICC line and now r eceiving IV antibiotics. She has been undergoing vascular evaluation. She already has a history of right below the knee amputation. During her time here, it has come to medical attention and that she has been complaining of dysphagia and also that she does have significant iron deficiency anemia. S he tells me that the dysphagia is going on for about 1-1/2 months, she will feel as if solids or kathy n liquids will often feel like they get stuck in the mid chest and this sensation can last for up to an hour or more often she will eventually feel the sensation resolve, but sometime, she has had to re gurgitate food back up. She never really had chronic heartburn until this all started over the past month and a half. She does not really have any abdominal pain. Bowel habits were normal until she g ot on all these antibiotics and her stools have been a bit loose during this time. She denies any me genoveva or hematochezia or hematemesis or any overt bleeding from anywhere. She is not really on any sp ecial diet. She takes an aspirin but no anticoagulation. Her hemoglobin level was found to be 6.4 o n admission. After 2 units of RBCs, her hemoglobin is up to 9.0 this is a microcytic anemia and labs do demonstrate iron deficiency. She has never undergone EGD or colonoscopy. REVIEW OF SYSTEMS: Full review of systems including constitutional, head, eyes, ears, nose, throat, GI, , cardiovascular, respiratory, musculoskeletal, and neurologic systems is negative except as no akash in the HPI. PAST MEDICAL HISTORY: Iron deficiency anemia, neuropathy, peripheral vascular disease, right below t he knee amputation, hysterectomy, coronary artery bypass graft, osteomyelitis, left foot medications. ALLERGIES: No known drug allergies. MEDICATIONS: Tylenol p.r.n., Tylenol No. 3 p.r.n., aspirin 81 mg daily, Tessalon Perles, vitamin D3, ciprofloxacin p.o. vitamin B12, ferrous sulfate, 325 mg b.i.d., gabapentin, Mucinex, melatonin, Flag yl 500 mg p.o. t.i.d., nicotine patch, MiraLax p.r.n., Florastor 250 mg daily, IV vancomycin 750 mg b .i.d. FAMILY HISTORY: Her father had pancreatic cancer. SOCIAL HISTORY: She does still smoke about 3/4 of a pack per day. PHYSICAL EXAMINATION: VITAL SIGNS: Temperature 98.4, pulse 97, blood pressure 136/73, 94% oxygen saturation on room air. GENERAL: Well-appearing, nontoxic 77-year-old woman sitting up in bed comfortably in no acute distre ss. SKIN: No jaundice, no rash visible or palpable. Bandage over her left foot wound. MENTAL: Alert and fully oriented, pleasant, conversational. EYES: No scleral icterus. Extraocular movements intact. ENT: Mucous membranes moist, no oral lesions. LYMPH: No submandibular, supraclavicular lymphadenopathy. THYROID: Nontender to palpation. HEART: Regular rate and rhythm. LUNGS: Clear to auscultation bilaterally. ABDOMEN: Bowel sounds present, soft, nontender to palpation. EXTREMITIES: She is status post right BKA. No peripheral edema. NEUROLOGIC: Cranial nerves II-XII intact bilaterally. LABORATORY STUDIES: Initial hemoglobin was 6.4 with MCV 64.8, now up to 9.0 after 2 units RBC transf usion. WBC is 7.4, platelets 428. Ferritin low at 7.68, iron 14. CRP 2.27. LFTs normal with total bilirubin 0.2, alkaline phosphatase 124, AST 19, ALT 10, vitamin B12 is normal at 398. Vitamin D is low at 10.0. Sodium is 138, potassium 3.7, BUN 7, creatinine 0.79. JEANCARLOS screen is negative. IMAGING STUDIES: Chest x-ray from 2 days ago showed no acute processes. ASSESSMENT AND PLAN: 1. Iron deficiency anemia, severe. This is in the absence of any reported overt bleeding. This cer tainly deserves endoscopic workup to rule out occult gastrointestinal blood loss. We will plan for E GD and colonoscopy tomorrow morning after bowel preparation this evening. 2. Dysphagia. This is new over the past one and a half months. Consider possible esophageal malign ant process, versus more benign etiology such as peptic stricture or esophageal web, which can often be associated with iron deficiency. Depending on findings, we may perform esophageal dilation at the time of the procedure tomorrow. Further recommendations following endoscopy tomorrow. The patient desires to proceed. Please call any time with questions or concerns.
[2018-01-01] MEDS: Nicotine 14 MG PATCH TD SCH (21:08)
[2018-01-02] MEDS: Vancomycin HCl 750 MG in Sodium Chloride 0.9% 250 ML 250 ML IVPB SCH ×2 (02:36→15:07)
[2018-01-02] MEDS: Acetaminophen 325 MG TAB PO PRN (04:35)
[2018-01-02] MEDS: Ciprofloxacin 500 MG TAB PO SCH (05:14)
[2018-01-02] MEDS: metroNIDAZOLE 500 MG TAB PO SCH ×2 (09:00→15:10)
[2018-01-02] MEDS ORDERED: Midazolam HCl 2 mg/2 ml Vial ONE (10:22)
[2018-01-02] MEDS ORDERED: Fentanyl 100 MCG/2 ML VIAL ONE (10:22)
[2018-01-02 12:00] VITALS: BP 145/78; TEMP 98
--- NOTE | 2018-01-02 12:16 | OP ---
DATE OF PROCEDURE: 01/02/2018 SURGEON: Dimas Mackay M.D. [facility] NUR[facility] SURGEON: None. PROCEDURES: 1. EGD with esophageal dilation and biopsies. 2. Colonoscopy with snare polypectomy. INDICATION: 1. Iron deficiency anemia. 2. Esophageal dysphagia. MEDICATIONS: See anesthesia record. FINDINGS: After discussion of the risks, benefits and alternatives of the procedure, informed consen t was obtained and witnessed. Pre-endoscopic cardiopulmonary examination was satisfactory. Timeout was performed before sedation was achieved. Sedation was achieved with anesthesia assistance in the endoscopy unit. A Pentax adult upper endoscope was placed into the oropharynx and passed through the cricopharyngeus under direct visualization. The proximal and mid esophageal mucosa appeared normal. In the area of the GE junction, there is severe erosive esophagitis with a shallow ulceration. The re was some edema in the area. Biopsies were obtained from the GE junction for histology. The endos cope was advanced beyond the GE junction, and into the stomach. There is a 5 cm sliding hiatal herni a. Forward and retroflexed views of the entire gastric mucosa were obtained. There is moderate jennifer ritis, particularly in the antrum with several small erosions and one shallow ulceration in the gastr ic antrum. Biopsies were obtained from the gastric antrum and body to rule out H. pylori infection. There was some heme staining throughout the stomach, it appears mostly secondary to her severe esoph agitis at the GE junction. The endoscope was advanced beyond the pylorus and into the first and seco nd portions of the duodenum, which were unremarkable. The upper endoscope was completely withdrawn a nd the patient was repositioned. Digital rectal exam was performed which demonstrated some external hemorrhoidal skin tags. A Pentax adult colonoscope was inserted into the anus and passed forward to the cecum in the usual fashion. T he cecal base was identified by the appendiceal orifice as well as the ileocecal valve. The terminal ileum was intubated and the ileal mucosa appeared normal. The colonoscope was then slowly withdrawn in a gradual and circumferential manner with careful examination of the entire colonic mucosa. The quality of the prep was adequate. In the ascending colon, there was a 5 mm sessile polyp. This was completely removed with hot snare and retrieved for pathology. In the sigmoid colon, there was anoth er 5 mm sessile polyp. This was completely removed with hot snare and retrieved for pathology. Retr oflexion in the rectum demonstrated some small internal hemorrhoids. The colonoscope was completely withdrawn and the patient allowed to recover. The patient tolerated the procedure well. There were no immediate post-procedure complications. IMPRESSION: 1. Severe erosive esophagitis at the GE junction, biopsied. The esophagus dilated to 18 mm. 2. A 5 cm hiatal hernia. 3. Erosive gastritis in the antrum, with shallow ulceration. Biopsy to rule out Helicobacter pylori . 4. A 5 mm ascending colon polyp, completely removed with hot snare and retrieved for pathology. 5. A 5 mm sigmoid colon polyp, completely removed with hot snare and retrieved for pathology. RECOMMENDATIONS: 1. Twice daily proton pump inhibitor. 2. Stop smoking. 3. Follow up pathology. 4. Advance diet. 5. GI will sign off at this time. The patient can follow up in the GI clinic in about a month. Con tinue the PPI twice daily at least until then.
--- NOTE | 2018-01-02 13:24 | PDOC.PN ---
- Subjective Encounter Start Date: 01/02/18 Encounter Start Time: 13:22 Subjective: s/p EGD today.c/o feeling congested. -: c/o neuropathic pain in hands and leg - Objective Resuscitation Status: Resuscitation Status FULL:Full Resuscitation Vital Signs & Weight: Vital Signs (12 hours) Temp Pulse Resp BP BP Pulse Ox 01/02/18 11:59 98.0 F 109 H 16 145/78 H 96 01/02/18 08:00 96 01/02/18 07:44 98.5 F 109 H 16 118/72 96 Weight Admit Weight 151 lb 2 oz Weight 151 lb 2 oz I&O: 01/01/18 01/02/18 01/03/18 06:59 06:59 06:59 Intake Total 660 2150 Balance 660 2150 Result Diagrams: 01/01/18 04:01 12/30/17 03:40 Additional Labs: Microbiology 12/27/17 13:30 Venous blood - Right Arm Blood Culture - Final NO GROWTH IN 5 DAYS 12/27/17 13:24 Venous blood - Left Hand Blood Culture - Final NO GROWTH IN 5 DAYS 12/22/17 12:00 Foot - Left Bacterial Culture - Final 12/22/17 12:00 Foot - Left Anaerobic Culture - Final Pseudomonas aeruginosa No growth. Laboratory Tests 12/27/17 12/28/17 12/30/17 13:30 03:31 03:40 Hgb 6.4 L 6.7 L 9.2 L 01/01/18 04:01 Hgb 9.0 L Phys Exam - Physical Examination Constitutional: NAD HEENT: PERRLA, moist MMs, sclera anicteric, TM's clear, oral pharynx no lesions , 2+ tonsils Respiratory: no wheezing, no rales, no rhonchi, wheezing present, clear to auscultation bilateral Cardiovascular: RRR, no significant murmur, no rub, gallop, irregular Gastrointestinal: soft, non-tender, no distention, positive bowel sounds Musculoskeletal: no edema, pulses present R BKA Neurological: non-focal, normal sensation, moves all 4 limbs Lymphatic: no nodes Dx/Plan (1) Toe osteomyelitis, left Code(s): M86.9 - OSTEOMYELITIS, UNSPECIFIED Status: Acute (2) Cellulitis Code(s): L03.90 - CELLULITIS, UNSPECIFIED Status: Acute Comment: continue IV vancomycin, oral ciprofloxacin and metronidazole (3) Vitamin D deficiency Code(s): E55.9 - VITAMIN D DEFICIENCY, UNSPECIFIED Status: Chronic Comment: continue vit d (4) Microcytic anemia Code(s): D50.9 - IRON DEFICIENCY ANEMIA, UNSPECIFIED Status: Chronic Comment : on iron replacement.S/P PRBC transfusion 12/28.H/H stable (5) Peripheral neuropathy Code(s): G62.9 - POLYNEUROPATHY, UNSPECIFIED Status: Chronic Comment: on gabapentin - Plan continue antibiotics, PT/OT, out of bed/ambulate, DVT proph w/lovenox, DVT proph w/SCDs EGD shows small shaloow ulcers & gastritis.PPI BID.H/H stable -: DC home when IV infusion set up done but pt says her daughter can't pick -: her up till friday -: increase neurontin.add PRN hs elavil and prn pain meds -: HD stable * . Review of Systems - Review of Systems Constitutional: weakness. negative: fever, chills, sweats, malaise, other ENT: negative: Ear Pain, Ear Discharge, Nose Pain, Nose Discharge, Nose Congestion, Mouth Pain, Mouth Swelling, Throat Pain, Throat Swelling, Other Respiratory: negative: Cough, Dry, Shortness of Breath, Hemoptysis, SOB with Excertion, Pleuritic Pain, Sputum, Wheezing Cardiovascular: negative: chest pain, palpitations, orthopnea, paroxysmal nocturnal dyspnea, edema, light headedness, other Gastrointestinal: negative: Nausea, Vomiting, Abdominal Pain, Diarrhea, Constipation, Melena, Hematochezia, Other Genitourinary: negative: Dysuria, Frequency, Incontinence, Hematuria, Retention , Other Musculoskeletal: Hand Pain, Leg Pain, Foot Pain. negative: Neck Pain, Shoulder Pain, Arm Pain, Back Pain, Other Neurological: negative: Weakness, Numbness, Incoordination, Change in Speech, Confusion, Seizures, Other - Medications/Allergies Allergies/Adverse Reactions: Allergies Allergy/AdvReac Type Severity Reaction Status Date / Time No Known Allergies Allergy Unverified 12/27/17 15:21 Medications: Current Medications Acetaminophen (Tylenol) 650 mg PO Q4H PRN PRN Reason: Headache/Fever/Mild Pain (1-3) Last Admin: 01/02/18 04:35 Dose: 650 mg Acetaminophen/Codeine Phosphate (Tylenol #3) 1 tab PO Q6H PRN PRN Reason: Pain 4-6 Last Admin: 12/31/17 21:23 Dose: 1 tab Aspirin (Ecotrin) 81 mg PO DAILY [facility] Last Admin: 01/01/18 08:23 Dose: 81 mg Benzonatate (Tessalon) 100 mg PO TID [facility] Last Admin: 01/01/18 21:02 Dose: 100 mg Cholecalciferol (Vitamin D3) 1,000 units PO DAILY [facility] Last Admin: 01/01/18 08:23 Dose: 1,000 units Ciprofloxacin (Cipro) 500 mg PO BID@0600,2000 [facility] Last Admin: 01/02/18 05:14 Dose: 500 mg Cyanocobalamin (Vitamin B-12) 1,000 mcg PO DAILY [facility] Last Admin: 01/01/18 08:23 Dose: 1,000 mcg Ergocalciferol (Drisdol) 1.25 mg PO Q7DAYS [facility] Last Admin: 12/28/17 14:19 Dose: 1.25 mg Ferrous Sulfate (Feosol) 325 mg PO BID-[facility] Last Admin: 01/01/18 16:19 Dose: 325 mg Gabapentin (Neurontin) 600 mg PO TID [facility] Last Admin: 01/01/18 21:02 Dose: 600 mg Guaifenesin (Mucinex) 1,200 mg PO Q12HR [facility] Last Admin: 01/01/18 21:02 Dose: 1,200 mg Vancomycin HCl 750 mg/ Sodium (Chloride) 250 mls @ 250 mls/hr IVPB 0300,1500 [facility] Last Admin: 01/02/18 02:36 Dose: 250 mls Loratadine (Claritin) 10 mg PO DAILYPRN PRN PRN Reason: Allergies Melatonin (Melatonin) 3 mg PO HS PRN PRN Reason: Insomnia Last Admin: 12/30/17 23:34 Dose: 3 mg Metronidazole (Flagyl) 500 mg PO TID [facility] Last Admin: 01/01/18 21:02 Dose: 500 mg Miscellaneous Medication (Pharmacy To Dose) 1 each IVPB ONE PRN PRN Reason: Pharmacy to dose Stop: 01/06/18 15:22 Nicotine (Nicoderm Patch) 14 mg TD Q24HR [facility] Last Admin: 01/01/18 21:08 Dose: 14 mg Pantoprazole Sodium (Protonix) 40 mg PO BID [facility] Polyethylene Glycol (Miralax) 17 gm PO DAILYPRN PRN PRN Reason: .CONSTIPATION Last Admin: 12/29/17 11:28 Dose: 17 gm Polyethylene Glycol/Electrolytes (Golytely) 4,000 ml PO ONE [facility] Stop: 01/02/18 16:46 Last Admin: 01/01/18 20:11 Dose: 4,000 ml Saccharomyces Boulardii (Florastor) 250 mg PO DAILY [facility] Last Admin: 01/01/18 08:23 Dose: 250 mg Zolpidem Tartrate (Ambien) 5 mg PO HSPRN PRN PRN Reason: Insomnia
[2018-01-02] MEDS ORDERED: Gabapentin 300 MG CAP PO SCH (13:28)
[2018-01-02] MEDS ORDERED: HYDROcodone/Acetaminophen 5/325 mg Tablet PO PRN ×2 (13:28)
[2018-01-02] MEDS ORDERED: PHENYLEPHRINE-NS 100 MCG/ML 10 ML SYRINGE ONE (13:41)
[2018-01-02] MEDS ORDERED: Lidocaine 1% PF 5 ML VIAL ONE (13:41)
[2018-01-02] MEDS ORDERED: PROPOFOL 200 MG/20 ML VIAL ONE (13:41)
[2018-01-02 14:36] LABS: Vancomycin, Trough 19.5 ug/mL
[2018-01-02] MEDS: Benzonatate 100 MG CAP PO SCH ×2 (15:10→15:15)
[2018-01-02] MEDS: Ferrous Sulfate 325 MG TAB PO SCH (15:11)
[2018-01-02] MEDS: guaiFENesin ER 600 MG TAB PO SCH (15:11)
[2018-01-02] MEDS: Aspirin 81 mg Enteric Coated Tablet PO SCH (15:12)
[2018-01-02] MEDS: Saccharomyces boulardii 250 MG CAP PO SCH (15:12)
[2018-01-02] MEDS: Cyanocobalamin (Vitamin B-12) 1,000 MCG TAB PO SCH (15:12)
[2018-01-02] MEDS ORDERED: Amitriptyline HCl 10 MG TAB PO SCH (21:00)
--- NOTE | 2018-01-03 19:47 | DIS ---
DATE OF ADMISSION: 12/27/2017 DATE OF DISCHARGE: 01/02/2018 CONDITION AT THE TIME OF DISCHARGE: Stable and improved. DISCHARGE DISPOSITION: Home with home health with the daughter. DISCHARGE DIAGNOSES: 1. Left lower extremity wound infection and osteomyelitis of the toe with cellulitis. 2. Iron deficiency anemia. 3. Peripheral neuropathy. 4. Vitamin D deficiency. DISCHARGE MEDICATIONS: IV vancomycin 750 b.i.d., ciprofloxacin 500 mg p.o. b.i.d. and Flagyl 500 mg p.o. t.i.d. until 02/07, Neurontin 600 mg p.o. t.i.d. INHOUSE CONSULTATIONS: 1. Gastroenterology, Dr. Dimas Mackay. 2. Infectious Disease, Dr. Manning. 3. CT Surgery, Dr. Mayers. PROCEDURES DONE IN THE HOSPITAL: 1. Bilateral lower extremity arterial Doppler which is moderate to severe peripheral vascular diseas e below the knee on the left and moderate disease about the knee bilaterally. 2. Carotid Doppler ultrasound, which is moderate stenosis of the right and left proximal ICA. 3. EGD on 01/02/2018 which shows erosive esophagitis as well as a 5 cm hiatal hernia. Erosive gastr itis in the antrum with shallow ulceration. 4. Colonoscopy which was 5 mm ascending colon polyp, completely removed and a 5 mm sigmoid colonic p olyp completely removed. DISCHARGE MEDICATIONS: Protonix 40 mg p.o. b.i.d. for one month. HISTORY OF PRESENTING ILLNESS: Ms. Chowdhury is a 77-year-old female with known history of peripheral art kala disease, status post right AKA and neuropathy, who presented to the emergency room with worsening left foot pain. She was referred to emergency room from Infectious Disease doctor, who she has seen as an outpatient. A wound culture done in the outpatient setting indicated Pseudomonas, so she was instructed to come to the hospital. She was not otherwise symptomatic. She was found to have a left foot cellulitis with possible osteomyelitis. She was admitted on the medical floor and was started on empiric IV antibiotics and Infectious Disease and vascular surgeon were consulted. Lower extremit y arterial Dopplers were ordered. Upon presentation, the patient's hemoglobin was found to be low at 6.4 with known history of iron deficiency anemia. She received 1 unit of packed RBC upon admission. Please see admission history and physical for further details. HOSPITAL COURSE: The arterial Doppler ultrasound showed some stenosis as above and Dr. Mayers saw the patient from Vascular Surgery Department. Upon his examination, the patient was found to have some pulses in her right leg and in his opinion, it was not a true arterial study and the occlusion was no t bad enough to require any interventional procedures. Her wound culture was followed and it did come back positive for Pseudomonas and Dr. Manning saw the pa tient. As per his recommendations: PICC line was placed and the patient was set up for IV infusion of vancomycin for a protracted period. She was also continued on Cipro and Flagyl, which were change d to oral on discharge which will also be continued for a protracted period of time. The patient ruperto l see Dr. Manning in the outpatient setting. With regards to her low hemoglobin upon presentation, iron studies were done and she was found to be indeed severely iron deficient. She received IV iron in the hospital and GI was consulted. She unde rwent EGD and colonoscopy showing some shallow ulcers. She had no evidence of any overt bleed at any point. Her hemoglobin after transfusion on admission remained stable. After the EGD and colonoscop y, she was continued on proton pump inhibitor and smoking cessation was highly advised. By the time of discharge, she was also set up for IV antibiotics and was hemodynamically stable. She was seen and examined prior to discharge. Please see hospitalist progress note from date of dischar for further detail. Total time spent in the discharge 38 minutes.
== END 2018-01-02 16:10 | disposition home health service (06) | DRG 540 ==
LOC: ERS 12:18 → T4-B 16:48
PROVIDERS: ADMIT Internal Medicine; ATTEND Internal Medicine
PROC: 30233N1 Transfusion of Nonautologous Red Blood Cells into Peripheral Vein, Percutaneous Approach (ICD-10-PCS; 2017-12-27)
PROC: 02HV33Z Insertion of Infusion Device into Superior Vena Cava, Percutaneous Approach (ICD-10-PCS; principal; 2018-01-01)
PROC: 0DB48ZX Excision of Esophagogastric Junction, Via Natural or Artificial Opening Endoscopic, Diagnostic (ICD-10-PCS; 2018-01-02)
PROC: 0D758DZ Dilation of Esophagus with Intraluminal Device, Via Natural or Artificial Opening Endoscopic (ICD-10-PCS; 2018-01-02)
PROC: 0DBK8ZX Excision of Ascending Colon, Via Natural or Artificial Opening Endoscopic, Diagnostic (ICD-10-PCS; 2018-01-02)
PROC: 0DBN8ZX Excision of Sigmoid Colon, Via Natural or Artificial Opening Endoscopic, Diagnostic (ICD-10-PCS; 2018-01-02)
DX: M86.8X7 Other osteomyelitis, ankle and foot (principal); L03.115 Cellulitis of right lower limb; K22.10 Ulcer of esophagus without bleeding; M14.671 Charcot's joint, right ankle and foot; D50.9 Iron deficiency anemia, unspecified; J20.9 Acute bronchitis, unspecified; L97.529 Non-pressure chronic ulcer of other part of left foot with unspecified severity; R13.19 Other dysphagia; G62.9 Polyneuropathy, unspecified; B96.5 Pseudomonas (aeruginosa) (mallei) (pseudomallei) as the cause of diseases classified elsewhere; I73.9 Peripheral vascular disease, unspecified; E55.9 Vitamin D deficiency, unspecified; I25.10 Atherosclerotic heart disease of native coronary artery without angina pectoris; K25.9 Gastric ulcer, unspecified as acute or chronic, without hemorrhage or perforation; K44.9 Diaphragmatic hernia without obstruction or gangrene; D12.2 Benign neoplasm of ascending colon; D12.5 Benign neoplasm of sigmoid colon; K64.8 Other hemorrhoids; Z95.1 Presence of aortocoronary bypass graft; Z89.511 Acquired absence of right leg below knee; F17.210 Nicotine dependence, cigarettes, uncomplicated; Z79.82 Long term (current) use of aspirin; Z79.899 Other long term (current) drug therapy
CPT/HCPCS: 36415; 36430; 36569; 71045; 80048; 80053; 80061; 80202; 82306; 82565; 82607; 82728; 83540; 83550; 85014; 85018; 85025; 85046; 85060; 86038; 86140; 86225; 86850; 86900; 86901; 87040; 88305; 88312; 88313; 93880; 93923; 96365; C1751; J1644; J1956; J2001; J2250; J2704; J2916; J3010; J3370; J7050; P9016

== ENCOUNTER → 2018-02-02 | Day surgery (SDC) | payer MEDICARE ==
[~2018-02-02] MED LIST: Heparin 1,000 UNITS/ML VIAL ONE
== END ==
LOC: SPEC 13:28
PROVIDERS: ATTEND Internal Medicine Infectious Disease
PROC: 02HV33Z Insertion of Infusion Device into Superior Vena Cava, Percutaneous Approach (ICD-10-PCS; principal; 2018-02-02)
PROC: B548ZZA Ultrasonography of Superior Vena Cava, Guidance (ICD-10-PCS; 2018-02-02)
DX: Z45.2 Encounter for adjustment and management of vascular access device (principal); M86.272 Subacute osteomyelitis, left ankle and foot; Z79.2 Long term (current) use of antibiotics; Z79.899 Other long term (current) drug therapy
CPT/HCPCS: 36584; C1751; J1644

== ENCOUNTER 2018-03-11 13:06 | Outpatient (CLI) | payer MEDICARE ==
--- NOTE | 2018-03-12 08:50 | HP ---
HISTORY OF PRESENT ILLNESS: Ms. Elizabeth Chowdhury is a very pleasant 77-year-old accompanied by her daughter, who presents [facility] for evaluation of an ulceration of the left medial foot in the region of the first metatarsophalangeal joint. The patient states that the wound has been present for approximately 4 months. The patient states that she has received treatment with IV antibiotics as per Dr. Manning for osteomyelitis of the left foot. The patient states that she is presently receiving dressing changes of [facility] 3 times per week with the assistance of home health. PAST MEDICAL HISTORY: 1. Peripheral vascular disease. 2. Coronary artery disease. 3. Anemia. PAST SURGICAL HISTORY: 1. Tonsillectomy. 2. Right licoy-ivz-rtpa amputation. 3. Hysterectomy. 4. Coronary artery bypass grafting x3. 5. Bilateral breast reduction. 6. Appendectomy. MEDICATIONS: 1. Potassium. 2. Pantoprazole. 3. Minocycline. 4. Gabapentin. 5. Multivitamin. 6. Tylenol No. 3. ALLERGIES: NO KNOWN DIAGNOSED ALLERGIES. SOCIAL HISTORY: Social history is significant for tobacco use of up to 1-1/2 packs of cigarettes per day for 50 years. The patient admits to the consumption of 30 drinks per year. FAMILY HISTORY: Family history is negative for diabetes mellitus or coronary artery disease. PHYSICAL EXAMINATION: VITAL SIGNS: Temperature 98.0, pulse 97, respirations 16, and blood pressure 153/75. General: A 77-year-old female, sitting on chair in examination room, in no acute distress. HEENT: Normocephalic and atraumatic. NECK: No nuchal rigidity. CHEST: Clear to auscultation. CV: Regular rate and rhythm. ABDOMEN: Soft. EXTREMITIES: An ulceration of the left medial foot is present in the region of the first metatarsophalangeal joint. The dimensions of the wound are approximately 0.8 x 0.9 cm. Granulation tissue is visible within the wound margins. Necrotic and nonviable tissue present within the wound margins were debrided with an excisional full-thickness debridement with the use of a curette. No purulent drainage is associated with the wound. No erythema of the skin surrounding the wound is present. No maceration of the skin of the periwound is noted. Dorsalis pedis pulse is easily palpable on the left. No significant edema of the left foot is present on exam today. NEUROLOGIC: Grossly nonfocal. ASSESSMENT AND PLAN: 1. Ulceration of left medial foot in the region of the first metatarsophalangeal joint as described above. Dressing changes of Medihoney and Mepilex border are to be performed 3 times per week after cleansing and irrigation with the assistance of Home Health. The patient has received IV and p.o. antibiotics as per Infectious Diseases for left foot osteomyelitis. I will see Yordan Trenton again in 2 to 3 weeks. The patient states that she has a followup appointment with Dr. Manning in the near future. She states that she will be scheduling an appointment with Dr. Burrell also in the near future. I will see Yordan Trenton again in 2 to 3 weeks. 2. Anemia. 3. Coronary artery disease. 4. Peripheral vascular disease. Job ID: [id number]
== END 2018-03-11 13:07 | disposition home or self-care (01) ==
LOC: WCC 13:06
PROVIDERS: ATTEND Family Medicine
DX: L97.529 Non-pressure chronic ulcer of other part of left foot with unspecified severity (principal); D64.9 Anemia, unspecified; I25.10 Atherosclerotic heart disease of native coronary artery without angina pectoris; I73.9 Peripheral vascular disease, unspecified

== ENCOUNTER 2020-09-05 11:07 | Day surgery (SDC) | payer MEDICARE ==
[2020-09-05] MEDS ORDERED: Phenylephrine 2.5% Ophth Soln 5 ML BOT ONE (11:24)
== END 2020-09-05 13:02 | disposition home or self-care (01) ==
LOC: SDC 11:07
PROVIDERS: ATTEND Ophthalmology
PROC: 085K3ZZ Destruction of Left Lens, Percutaneous Approach (ICD-10-PCS; principal; 2020-09-05)
PROC: 085J3ZZ Destruction of Right Lens, Percutaneous Approach (ICD-10-PCS; 2020-09-05)
DX: H26.493 Other secondary cataract, bilateral (principal)

== ENCOUNTER 2021-06-08 12:49 | Emergency (ER) | payer MEDICARE | END 2021-06-08 13:49 | disposition home or self-care (01) | LOC: ERS 12:49 | DX: M25.531 Pain in right wrist (principal); F17.210 Nicotine dependence, cigarettes, uncomplicated ==

== ENCOUNTER 2021-08-02 16:47 | Inpatient (IN) | payer MEDICARE ==
[2021-08-02 17:24] LABS: #Eosinphils 0.1 thou/uL (0.0-0.7); #Lymphocytes 1.4 thou/uL (1.20-3.40); #Monocytes 0.7 thou/uL (0.11-0.59); #Neutrophils 6.6 thou/uL (1.40-6.50); %Basophils 0.5 % (0.0-1.0); %Eosinophils 0.9 % (0.0-10.0); %Monocytes 8.2 % (0.0-10.0); %Neutrophils 74.4 % (42.0-75.0); Hemoglobin 11.3 g/dL (12.0-16.0); Mean Corpuscular HGB CONC 29.4 g/dL (32.0-36.0); Mean Corpuscular Hemoglobin 25.5 pg (27.0-31.0); Mean Corpuscular Volume 86.6 fL (78.0-98.0); Platelet Count 420 thou/uL (130-400); RBC Distribution Width 25.6 % (11.5-14.5); Red Blood Cell (RBC) Count 4.44 mill/uL (4.20-5.40); White Blood Cell (WBC) Count 8.8 thou/uL (4.8-10.8)
[2021-08-02 17:34] LABS: Anisocytosis MODERATE=16-30 cells (100X) (0-5/hpf); Hypochromia SLIGHT = 6-15 cells (100X) (0-5/hpf); MDiff Complete? YES; Ovalocytes SLIGHT = 2-5 cells (100X) (0-1/hpf); Platelet Morphology Comment Appears Increased; Polychromasia SLIGHT = 2-3 cells (100X) (0-2/hpf); Target Cells SLIGHT = 2-5 cells (100X) (0-1/hpf)
[2021-08-02 17:43] LABS: ALT (SGPT) Less than 7 U/L (8-55); AST (SGOT) 13 U/L (5-34); Albumin 3.5 g/dL (3.4-4.8); Alkaline Phosphatase 106 U/L (40-110); Anion Gap 13 mmol/L (10-20); BUN (Urea Nitrogen) 7 mg/dL (9.8-20.1); Bilirubin, Total 0.8 mg/dL (0.2-1.2); Calc. Creatinine Clearance 0 mL/min (70-130); Calcium 9.4 mg/dL (7.8-10.44); Carbon Dioxide 28 mmol/L (23-31); Chloride 104 mmol/L (98-107); Globulin 3.1 g/dL (2.4-3.5); Glucose 98 mg/dL (83-110); Magnesium 1.7 mg/dL (1.6-2.6); Protein, Total 6.6 g/dL (5.8-8.1); Sodium 142 mmol/L (136-145)
[2021-08-02 19:22] LABS: Bacteria/HPF None Seen HPF (None Seen); Bilirubin Negative (Negative); Blood, Urine Negative (Negative); Clarity Clear (Clear); Glucose, Urine (Dipstick) Normal (Negative); Ketone, Urine 10 mg/dL (Negative); Leukocyte Negative Leu/uL (Negative); Nitrite Negative (Negative); Protein, Urine (Dipstick) 30 mg/dL (Neg-Trace); RBC/HPF 0-3 HPF (0-3); Specific Gravity, Urine 1.018 (1.002-1.036); Squamous Epithelial None Seen HPF (0-3); Urobilinogen Normal mg/dL (Less than 2); WBC/HPF 0-3 HPF (0-3)
[2021-08-02 20:35] LABS: Acetaminophen Less than 10.0 mcg/mL (10.0-30.0); Alcohol Less than 10 mg/dL (Less than 10); Salicylate Less than 8.0 mg/dL (15.0-30.0)
[2021-08-02 20:45] LABS: Amphetamine Not Detected (NotDetected); Barbiturates Screen Not Detected (NotDetected); Benzodiazepine Screen Not Detected (NotDetected); Cocaine Metabolite Screen Not Detected (NotDetected); Methadone Not Detected (NotDetected); Methamphetamine Not Detected (NotDetected); Opiate Screen Not Detected (NotDetected); Oxycodone Screen Not Detected (NotDetected); Phencyclidine (PCP) Not Detected (NotDetected); THC/Cannabinoid Screen Detected (NotDetected); Tricyclic Screen Detected (NotDetected)
[2021-08-02] MEDS ORDERED: Ondansetron PF 4 MG/2 ML Vial IVP PRN (20:57)
[2021-08-02] MEDS ORDERED: Potassium Chloride 20 MEQ TAB PO SCH (21:15)
[2021-08-02 21:37] LABS: Magnesium 1.7 mg/dL (1.6-2.6)
[2021-08-03] MEDS: Sodium Chloride 0.9% 1,000 ML IV SCH ×2 (00:42→13:56)
[2021-08-03] MEDS: Potassium Chloride 20 MEQ in Premix Bag 1 BAG IVPB SCH ×2 (00:42→03:48)
[2021-08-03 00:48] VITALS: BMI 19.3
[2021-08-03 05:26] LABS: Anion Gap 15 mmol/L (10-20); BUN (Urea Nitrogen) 7 mg/dL (9.8-20.1); Calc. Creatinine Clearance 57 mL/min (70-130); Carbon Dioxide 23 mmol/L (23-31); Chloride 105 mmol/L (98-107); Cholesterol 154 mg/dl (< 200 Desired); Glucose 87 mg/dL (83-110); HDL Cholesterol 52 mg/dL (>60 Neg Risk); LDL Cholesterol, Calculated 88 mg/dL; Magnesium 1.7 mg/dL (1.6-2.6); Sodium 139 mmol/L (136-145); Triglycerides 72 mg/dL (Less than 150)
[2021-08-03 06:30] LABS: #Eosinphils 0.1 thou/uL (0.0-0.7); #Lymphocytes 1.4 thou/uL (1.20-3.40); #Monocytes 0.9 thou/uL (0.11-0.59); #Neutrophils 10.6 thou/uL (1.40-6.50); %Basophils 0.2 % (0.0-1.0); %Eosinophils 0.8 % (0.0-10.0); %Lymphocytes 10.7 % (21.0-51.0); %Monocytes 6.6 % (0.0-10.0); %Neutrophils 81.7 % (42.0-75.0); Anisocytosis MODERATE=16-30 cells (100X) (0-5/hpf); Hemoglobin 10.7 g/dL (12.0-16.0); MDiff Complete? YES; Mean Corpuscular HGB CONC 31.2 g/dL (32.0-36.0); Mean Corpuscular Hemoglobin 25.8 pg (27.0-31.0); Mean Corpuscular Volume 82.8 fL (78.0-98.0); Platelet Count 419 thou/uL (130-400); RBC Distribution Width 25.3 % (11.5-14.5); Red Blood Cell (RBC) Count 4.16 mill/uL (4.20-5.40)
[2021-08-03] MEDS: Enoxaparin Sodium 40 MG/0.4 ML SYRINGE SC SCH (08:56)
[2021-08-03] MEDS: Cyclobenzaprine 10 MG TAB PO SCH ×2 (15:46→20:49)
[2021-08-04] MEDS: Sodium Chloride 0.9% 1,000 ML IV SCH ×2 (03:21→15:25)
[2021-08-04 05:55] LABS: Anion Gap 15 mmol/L (10-20); BUN (Urea Nitrogen) 7 mg/dL (9.8-20.1); Calc. Creatinine Clearance 56 mL/min (70-130); Calcium 8.3 mg/dL (7.8-10.44); Carbon Dioxide 21 mmol/L (23-31); Chloride 107 mmol/L (98-107); Glucose 89 mg/dL (83-110); Magnesium 1.6 mg/dL (1.6-2.6); Potassium 3.5 mmol/L (3.5-5.1); Sodium 139 mmol/L (136-145)
[2021-08-04] MEDS: Cyclobenzaprine 10 MG TAB PO SCH ×3 (09:57→20:22)
[2021-08-04] MEDS: Acetaminophen 325 MG TAB PO PRN (09:57)
[2021-08-04] MEDS: Enoxaparin Sodium 40 MG/0.4 ML SYRINGE SC SCH (09:58)
[2021-08-04 11:10] LABS: #Eosinphils 0.1 thou/uL (0.0-0.7); #Lymphocytes 1.5 thou/uL (1.20-3.40); #Monocytes 0.7 thou/uL (0.11-0.59); #Neutrophils 8.6 thou/uL (1.40-6.50); %Basophils 0.3 % (0.0-1.0); %Eosinophils 1.2 % (0.0-10.0); %Lymphocytes 14.1 % (21.0-51.0); %Monocytes 6.1 % (0.0-10.0); %Neutrophils 78.3 % (42.0-75.0); Anisocytosis MODERATE=16-30 cells (100X) (0-5/hpf); Elliptocytes SLIGHT = 2-5 cells (100X) (0-1/hpf); Hemoglobin 11.5 g/dL (12.0-16.0); Hypochromia SLIGHT = 6-15 cells (100X) (0-5/hpf); MDiff Complete? YES; Mean Corpuscular HGB CONC 30.4 g/dL (32.0-36.0); Mean Corpuscular Hemoglobin 25.9 pg (27.0-31.0); Mean Corpuscular Volume 85.1 fL (78.0-98.0); Mean Platelet Volume 10.3 fL (7.4-10.4); Platelet Count 378 thou/uL (130-400); Platelet Morphology Comment Appears Adequate; Polychromasia SLIGHT = 2-3 cells (100X) (0-2/hpf); RBC Distribution Width 24.9 % (11.5-14.5); Red Blood Cell (RBC) Count 4.45 mill/uL (4.20-5.40); Tear Drops SLIGHT = 2-5 cells (100X) (0-1/hpf)
[2021-08-04] MEDS ORDERED: Lorazepam 1 MG TAB PO SCH (12:00)
[2021-08-05] MEDS: Sodium Chloride 0.9% 1,000 ML IV SCH ×2 (05:46→22:01)
[2021-08-05 05:59] LABS: Anion Gap 14 mmol/L (10-20); BUN (Urea Nitrogen) 5 mg/dL (9.8-20.1); Calc. Creatinine Clearance 59 mL/min (70-130); Calcium 8.6 mg/dL (7.8-10.44); Carbon Dioxide 24 mmol/L (23-31); Chloride 107 mmol/L (98-107); Glucose 71 mg/dL (83-110); Magnesium 1.5 mg/dL (1.6-2.6); Sodium 142 mmol/L (136-145)
[2021-08-05 06:05] LABS: Potassium 2.8 mmol/L (3.5-5.1)
[2021-08-05] MEDS ORDERED: Electrolyte Replacement Protocol FS PRN (07:00)
[2021-08-05 07:06] LABS: #Basophils 0.1 thou/uL (0.0-0.2); #Eosinphils 0.2 thou/uL (0.0-0.7); #Lymphocytes 1.6 thou/uL (1.20-3.40); #Monocytes 0.5 thou/uL (0.11-0.59); #Neutrophils 4.3 thou/uL (1.40-6.50); %Basophils 1.2 % (0.0-1.0); %Eosinophils 3.5 % (0.0-10.0); %Lymphocytes 22.9 % (21.0-51.0); %Monocytes 8.1 % (0.0-10.0); %Neutrophils 64.2 % (42.0-75.0); Anisocytosis MODERATE=16-30 cells (100X) (0-5/hpf); Elliptocytes SLIGHT = 2-5 cells (100X) (0-1/hpf); Hemoglobin 10.4 g/dL (12.0-16.0); MDiff Complete? YES; Mean Corpuscular HGB CONC 30.3 g/dL (32.0-36.0); Mean Corpuscular Volume 85.8 fL (78.0-98.0); Mean Platelet Volume 10.4 fL (7.4-10.4); Platelet Count 351 thou/uL (130-400); RBC Distribution Width 24.7 % (11.5-14.5); Red Blood Cell (RBC) Count 3.99 mill/uL (4.20-5.40); White Blood Cell (WBC) Count 6.7 thou/uL (4.8-10.8)
[2021-08-05] MEDS: Potassium Chloride 20 MEQ TAB PO SCH ×2 (07:43→11:40)
[2021-08-05] MEDS ORDERED: Magnesium 2 GM/50 ML(in water) 2 GM in Premix Bag 1 BAG IVPB SCH (08:00)
[2021-08-05] MEDS ORDERED: Potassium Chloride 20 MEQ in Premix Bag 1 BAG IVPB SCH (08:00)
[2021-08-05] MEDS: Cyclobenzaprine 10 MG TAB PO SCH ×3 (08:16→20:03)
[2021-08-05] MEDS: Enoxaparin Sodium 40 MG/0.4 ML SYRINGE SC SCH (08:16)
[2021-08-05] MEDS ORDERED: Lorazepam 1 MG TAB PO PRN (13:35)
[2021-08-05] MEDS ORDERED: Lorazepam 2 MG/ML VIAL IM PRN (13:35)
[2021-08-05] MEDS ORDERED: Ondansetron ODT 4 MG TAB PO PRN (13:35)
[2021-08-05] MEDS ORDERED: Electrolyte Replacement Protocol 1 EACH FS SCH (13:45)
[2021-08-05] MEDS ORDERED: Folic Acid 1 MG TAB PO SCH (14:00)
[2021-08-05] MEDS: Lorazepam 1 MG TAB PO SCH ×2 (14:08→20:03)
[2021-08-05] MEDS: Thiamine HCl 200 MG/2 ML VIAL SLOW IVP SCH (14:09)
[2021-08-06] MEDS: Lorazepam 1 MG TAB PO SCH ×4 (01:28→21:51)
[2021-08-06] MEDS: Folic Acid 1 MG TAB PO SCH (09:13)
[2021-08-06] MEDS: Multivit, Therapeutic 1 TAB PO SCH (09:13)
[2021-08-06] MEDS: Cyclobenzaprine 10 MG TAB PO SCH ×3 (09:13→21:55)
[2021-08-06] MEDS: Sodium Chloride 0.9% 1,000 ML IV SCH ×2 (09:14→21:53)
[2021-08-06] MEDS: Enoxaparin Sodium 40 MG/0.4 ML SYRINGE SC SCH (09:14)
[2021-08-06] MEDS ORDERED: Lorazepam 1 MG TAB PO PRN (13:35)
[2021-08-06] MEDS: Thiamine HCl 200 MG/2 ML VIAL SLOW IVP SCH (13:41)
[2021-08-07] MEDS: Lorazepam 1 MG TAB PO SCH ×2 (02:39→10:06)
[2021-08-07 06:10] LABS: ALT (SGPT) Less than 7 U/L (8-55); AST (SGOT) 15 U/L (5-34); Albumin 3.1 g/dL (3.4-4.8); Alkaline Phosphatase 86 U/L (40-110); Anion Gap 13 mmol/L (10-20); BUN (Urea Nitrogen) 5 mg/dL (9.8-20.1); Bilirubin, Total 0.5 mg/dL (0.2-1.2); Calc. Creatinine Clearance 55 mL/min (70-130); Calcium 9.1 mg/dL (7.8-10.44); Carbon Dioxide 23 mmol/L (23-31); Chloride 104 mmol/L (98-107); Globulin 2.8 g/dL (2.4-3.5); Glucose 74 mg/dL (83-110); Magnesium 1.6 mg/dL (1.6-2.6); Potassium 3.4 mmol/L (3.5-5.1); Protein, Total 5.9 g/dL (5.8-8.1); Sodium 137 mmol/L (136-145)
[2021-08-07 06:31] LABS: #Eosinphils 0.2 thou/uL (0.0-0.7); #Lymphocytes 1.9 thou/uL (1.20-3.40); #Monocytes 0.7 thou/uL (0.11-0.59); %Basophils 0.1 % (0.0-1.0); %Eosinophils 1.8 % (0.0-10.0); %Lymphocytes 21.4 % (21.0-51.0); %Monocytes 8.4 % (0.0-10.0); %Neutrophils 68.3 % (42.0-75.0); Hemoglobin 10.4 g/dL (12.0-16.0); Mean Corpuscular HGB CONC 31.1 g/dL (32.0-36.0); Mean Corpuscular Hemoglobin 26.4 pg (27.0-31.0); Mean Corpuscular Volume 84.9 fL (78.0-98.0); Platelet Count 348 thou/uL (130-400); RBC Distribution Width 24.3 % (11.5-14.5); Red Blood Cell (RBC) Count 3.92 mill/uL (4.20-5.40); White Blood Cell (WBC) Count 8.8 thou/uL (4.8-10.8)
[2021-08-07 06:32] LABS: Anisocytosis MODERATE=16-30 cells (100X) (0-5/hpf); MDiff Complete? YES
[2021-08-07] MEDS ORDERED: Potassium Chloride 20 MEQ TAB PO SCH (08:00)
[2021-08-07] MEDS ORDERED: Magnesium 2 GM/50 ML(in water) 2 GM in Premix Bag 1 BAG IVPB SCH (08:00)
[2021-08-07] MEDS: Folic Acid 1 MG TAB PO SCH (10:03)
[2021-08-07] MEDS: Cyclobenzaprine 10 MG TAB PO SCH ×2 (10:03→15:26)
[2021-08-07] MEDS: Multivit, Therapeutic 1 TAB PO SCH (10:03)
[2021-08-07] MEDS: Enoxaparin Sodium 40 MG/0.4 ML SYRINGE SC SCH (10:04)
[2021-08-07] MEDS: Acetaminophen 325 MG TAB PO PRN (10:11)
[2021-08-07] MEDS: Sodium Chloride 0.9% 1,000 ML IV SCH (12:49)
[2021-08-07] MEDS ORDERED: Lorazepam 1 MG TAB PO PRN (13:35)
[2021-08-07] MEDS ORDERED: Lorazepam 0.5 MG TAB PO SCH (13:45)
[2021-08-07 14:59] LABS: Potassium 3.8 mmol/L (3.5-5.1)
[2021-08-07] MEDS: Thiamine HCl 200 MG/2 ML VIAL SLOW IVP SCH (15:27)
[2021-08-07 15:44] VITALS: BP 124/82; TEMP 98.4
[2021-08-08] MEDS ORDERED: Thiamine 100 MG TAB PO SCH (09:00)
[2021-08-08] MEDS ORDERED: Lorazepam 0.5 MG TAB PO PRN (13:35)
== END 2021-08-07 18:55 | DRG 72 ==
LOC: ERS 16:47 → NEURO 20:12 → OBSVTOIN 08-03 12:56
PROVIDERS: ADMIT Internal Medicine; ATTEND Internal Medicine
DX: G93.41 Metabolic encephalopathy (principal); I25.10 Atherosclerotic heart disease of native coronary artery without angina pectoris; G62.9 Polyneuropathy, unspecified; I73.9 Peripheral vascular disease, unspecified; F17.210 Nicotine dependence, cigarettes, uncomplicated; E87.6 Hypokalemia; M43.6 Torticollis; E55.9 Vitamin D deficiency, unspecified; F10.10 Alcohol abuse, uncomplicated; F19.10 Other psychoactive substance abuse, uncomplicated; Z79.899 Other long term (current) drug therapy; Z89.511 Acquired absence of right leg below knee; Z95.1 Presence of aortocoronary bypass graft; Z90.89 Acquired absence of other organs; Z98.890 Other specified postprocedural states; Z71.51 Drug abuse counseling and surveillance of drug abuser
CPT/HCPCS: 36415; 36416; 51701; 70450; 70551; 71045; 80048; 80053; 80061; 80306; 80307; 81003; 81015; 83605; 83735; 84443; 84484; 85025; 93005; 93010; 95712; 95816; 95819; 95957; 96360; 96372; G0378; J1650; J3411; J3475; J3480; J7050; U0003; U0005